=== PATIENT | female | born 1975 | race Caucasian/White ===

== ENCOUNTER 2020-02-19 08:25 | Observation (INO) | payer OTHER, SELFPAY ==
[2020-02-19] VITALS (14 sets, daily range): BP systolic 115–159; BP diastolic 54–86; PULSE 68–113; RESP 15–21; TEMP 36.2–37.1; O2SAT 96–100; BMI 35.0; BMI 36.2; BMI 36.3
--- NOTE | 2020-02-19 08:29 | RAD_ITS ---
STUDY: X-RAY CHEST REASON FOR EXAM: Female, 44 years old. NEURO DEFICIT, ACUTE, STROKE SUSPECTED. NO CHEST COMPLAINTS TECHNIQUE: Single AP portable view of the chest. COMPARISON: None. FINDINGS: EKG electrodes are seen. The lungs are clear and expanded. There is no demonstrated pleural abnormality. Normal size heart. Normal mediastinum and toyin. Normal visualized pulmonary arteries. Normal visualized aortic arch and descending thoracic aorta. Normal visualized thoracic spine. Normal visualized ribs, clavicles, and shoulders. There is no demonstrated abnormality of the visualized soft tissue structures of the upper abdomen. RAD/Chest 1 View IMPRESSION: Normal x-ray examination of the chest. Electronically Signed: Brenden Ferguson, at 9:30 EST , Service support ,
--- NOTE | 2020-02-19 08:29 | EKG12_ITS ---
Test Reason : STROKE Blood Pressure : / mmHG Vent. Rate : 074 BPM Atrial Rate : 074 BPM P-R Int : 150 ms QRS Dur : 074 ms QT Int : 384 ms P-R-T Axes : 042 032 020 degrees QTc Int : 426 ms Normal sinus rhythm Normal ECG Confirmed by JESÚS LEWIS, KENRICK ([id number]), online content editor KWASI PALOMINO ([id number]) on 02/21/2020 8:14:54 AM Referred By: STEFAN Confirmed By:KENRICK ESPINOSA MD
--- NOTE | 2020-02-19 08:29 | CT_ITS ---
STUDY: CT HEAD STROKE PROTOCOL W/O CONTRAST INJECTION REASON FOR EXAM: Female, 44 years old. STROKE RADIATION DOSAGE (If Supplied By Facility): CTDIvol = ( ) mGy, DLP = ( ) mGycm TECHNIQUE: Transaxial CT imaging of the brain was performed without administration of intravenous contrast material. Individualized dose optimization techniques were used for this CT. COMPARISON: No relevant priors. FINDINGS: Normal soft tissue structures. Normal calvarium. Normal size ventricles and extra-axial spaces for the patient''s age. Normal white matter tracts of the cerebral hemispheres. Focal punctate calcification in the right basal ganglia. Normal brainstem. Normal cerebellum. There is no intracranial hemorrhage. There are no findings of an acute ischemic infarction. Normal visualized paranasal sinuses. CT/STROKE Brain/Head without Cont IMPRESSION: Normal unenhanced CT scan of the brain. N.B. : The above information has been verbally conveyed by Brenden Ferguson to Isaac Molina MD, on 02/19/2020 08:45:17 (ET). Electronically Signed: Brenden Ferguson, at 8:46 EST , Service support ,
--- NOTE | 2020-02-19 08:30 | CT_ITS ---
STUDY: CTA HEAD AND NECK WITH CONTRAST REASON FOR EXAM: Female, 44 years old. POSS STROKE. RIGHT FACIAL DROOP RADIATION DOSAGE (If Supplied By Facility): CTDIvol = ( 26.53 ) mGy, DLP = ( 703.39 ) mGycm TECHNIQUE: CT angiography was performed with a multi-detector CT scanner. Data acquisition was obtained from the skull base through the vertex following intravenous administration of [id number] 100ML. MIP images were reconstructed from the axial data set. Post-processing of the angiographic images was performed, with multiplanar reformation and 3D reconstruction. Individualized dose optimization techniques were used for this CT. COMPARISON: No relevant priors. FINDINGS: Normal bilateral petrous carotid arteries. Normal right cavernous carotid artery with a normal supraclinoid bifurcation. Normal left cavernous carotid artery with a normal supraclinoid bifurcation. Normal right A1 segments of the anterior cerebral artery. Normal left A1 segments of the anterior cerebral artery. Normal intact anterior communicating artery (ACOM). Normal bilateral A2 segments of the anterior cerebral arteries. Normal right M1 and M2 segments of the middle cerebral arteries, with a normal M1 bifurcation. Normal left M1 and M2 segments of the middle cerebral arteries, with a normal M1 bifurcation. Normal right posterior communicating artery (PCOM). Normal left posterior communicating artery (PCOM). Normal bilateral vertebral arteries. Normal basilar artery with a normal basilar bifurcation. The visualized bilateral superior cerebellar (SCA) arteries are normal. Normal bilateral P1, P2 and visualized P3 segments of the posterior cerebral arteries. There is no demonstrated aneurysm of the [place]. There is no demonstrated abnormality of the visualized brain. AORTIC ARCH: Normal visualized aortic arch. Normal origins of the brachiocephalic, left common carotid, and left subclavian arteries. RIGHT CAROTID ARTERIES: Normal right common carotid artery (CCA). Normal right common carotid bulb. Normal origin of the right internal carotid (ICA) artery without a hemodynamically significant stenosis. Normal visualized cervical portion of the right internal carotid artery. Normal origin of the right external carotid artery (ECA). LEFT CAROTID ARTERIES: Normal left common carotid artery (CCA). Normal left common carotid bulb. Normal origin of the left internal carotid (ICA) artery without a hemodynamically significant stenosis. Normal visualized cervical portion of the left internal carotid artery. Normal origin of the left external carotid artery (ECA). VERTEBRAL ARTERIES: Normal bilateral vertebral arteries. CT/STROKE CTA Head AND Neck W/Con IMPRESSION: Normal CTA Head and neck with contrast. N.B. : The above information has been verbally conveyed by Brenden Ferguson to CHIQUIS Gamez on 02/19/2020 08:49:51 (ET). Electronically Signed: Brenden Ferguson, at 8:50 EST , Service support ,
--- NOTE | 2020-02-19 08:32 | ED.VIS.STROK ---
History of Present Illness Chief Complaint: Neuro S/Sx Informant: Patient Onset: Today Narrative: 44-year-old female with no significant past medical history presents with concern for right-sided facial droop. States she woke up this morning after last known well being 10 PM yesterday (10 hours) with a right-sided facial droop. States that she also has tingling in her right hand. States that she does get tingling intermittently in her right hand after a long day of work but it does feel somewhat worse this morning. Denies any headache, vision change, nausea, vomiting, neck pain, fever, chills, head injury. Denies any chest pain, shortness of breath, cough. States that her mother had a stroke at the same age that she is now. Patient is not a current smoker. Past Medical History - Allergies and Home Meds Allergies/Adverse Reactions: Allergies acetaminophen Allergy (Verified 08/22/14 10:05) Unknown FROM PERCOCET oxycodone Allergy (Verified 08/22/14 10:04) Unknown Primary Care Physician: Adam Chua NP, INFANTRY OPERATIONS SPECIALIST-C [NON-STAFF] - Prior records reviewed: Yes Past Medical History: None Surgical History: hysterectomy Lives: With Family Smoking Status: Never smoker Alcohol: None Drugs: None Review of Systems General: Denies: Chills, Fever, Sweats Eyes: Denies: Visual changes - bilaterally, Diplopia ENT: Denies: Rhinorrhea, Sore throat Cardiovascular: Denies: Chest pain, Palpitations Respiratory: Denies: Dyspnea, Cough, Dyspnea on exertion Gastrointestinal: Denies: Abdominal pain, Nausea, Vomiting, Diarrhea, Melena, Hematochezia Genitourinary: Denies: Dysuria, Hematuria, Frequency Musculoskeletal: Denies: Back pain, Extremity Pain Skin: Denies: Rash, Wounds Neurological: Reports: Parasthesia, - - right facial droop. Denies: Headache, Weakness, Numbness STROKE Vital Signs/Narrative: Vital Signs Pulse Resp BP Pulse Ox 02/19/20 08:26 86 18 159/85 H 99 Inital Vital Signs reviewed: Yes General: Well nourished, Well developed Head: Normocephalic, Atraumatic Eyes: Perrl, EOMI ENT: Moist mucous membranes, No rhinorrhea Neck: Supple, Nontender Cardiovascular: Regular rate, Regular rhythm, No murmurs Respiratory: No distress, CTA bilaterally, Chest nontender Abdomen: Soft, Nontender, Nondistended, Normal bowel sounds Back: Nontender, Normal Inspection Extremities: Nontender, No edema Skin: Normal color, No rash Neurological: Alert, Oriented x3, Cranial nerves II-XII grossly intact, Normal Strength, Normal Sensation, Right side facial droop, - - NIH 1 Psychological: Normal affect Diagnostic/Tx/Re-eval Clinical Impression(s) from Imaging Studies Brain CT 02/19/20 08:29 IMPRESSION: Normal unenhanced CT scan of the brain. N.B. : The above information has been verbally conveyed by Brenden Ferguson to Isaac Gamez MD, on 02/19/2020 08:45:17 (ET). Electronically Signed: Brenden Ferguson, at 8:46 EST , Service support , ADDENDUM: 02/19/20 0853 IMPRESSION: Normal unenhanced CT scan of the brain. N.B. : The above information has been verbally conveyed by Brenden Ferguson to Isaac Gamez MD, on 02/19/2020 08:45:17 (ET). Electronically Signed: Brenden Ferguson, at 8:46 EST , Service support , Chest X-Ray 02/19/20 08:29 IMPRESSION: Normal x-ray examination of the chest. Electronically Signed: Brenden Ferguson, at 9:30 EST , Service support , Head/Neck CTA 02/19/20 08:30 IMPRESSION: Normal CTA Head and neck with contrast. N.B. : The above information has been verbally conveyed by Brenden Ferguson to ISAAC Gamez on 02/19/2020 08:49:51 (ET). Electronically Signed: Brenden Ferguson, at 8:50 EST , Service support , ADDENDUM: 02/19/20 0857 IMPRESSION: Normal CTA Head and neck with contrast. N.B. : The above information has been verbally conveyed by Brenden Ferguson to ISAAC Gamez on 02/19/2020 08:49:51 (ET). Electronically Signed: Brenden Ferguson, at 8:50 EST , Service support , Laboratory Data 02/19/20 02/19/20 02/19/20 08:43 08:45 08:45 WBC 5.8 RBC 3.71 L Hgb 11.4 L Hct 34.3 L MCV 92.5 MCH 30.7 MCHC 33.2 RDW Std Deviation 41.0 RDW Coeff of [place] 12.1 Plt Count 211 MPV 11.4 Immature Gran % (Auto) 0.300 Neut % (Auto) 59.7 Lymph % (Auto) 32.0 [place] % (Auto) 6.6 Eos % (Auto) 1.2 Baso % (Auto) 0.2 Absolute Neuts (auto) 3.5 Absolute Lymphs (auto) 1.85 Nucleated RBC % 0 PT 12.3 INR 1.0 APTT 29.2 Sodium Potassium Chloride Carbon Dioxide Anion Gap BUN Creatinine Estim Creat Clear Calc Est GFR (MDRD) Af Amer Est GFR (MDRD) Non-Af BUN/Creatinine Ratio Glucose Calcium Troponin I POC Glucose 89 02/19/20 08:45 WBC RBC Hgb Hct MCV MCH MCHC RDW Std Deviation RDW Coeff of [place] Plt Count MPV Immature Gran % (Auto) Neut % (Auto) Lymph % (Auto) [place] % (Auto) Eos % (Auto) Baso % (Auto) Absolute Neuts (auto) Absolute Lymphs (auto) Nucleated RBC % PT INR APTT Sodium 136 Potassium 4.3 Chloride 104 Carbon Dioxide 27.0 Anion Gap 5 BUN 14 Creatinine 0.70 Estim Creat Clear Calc 86.72 Est GFR (MDRD) Af Amer 116 Est GFR (MDRD) Non-Af 96 BUN/Creatinine Ratio 20.1 H Glucose 96 Calcium 7.7 L Troponin I < 0.015 POC Glucose Chest X-Ray - ED: 1 View, Read by ED Physician, Read by Radiologist, Normal - Rhythm Strip Rhythm Strip: Sinus Rhythm Rate: 74 Ectopy: None - EKG Initial EKG Interpretation: Sinus Rhythm - Sinus rhythm at 74 bpm. PA interval of 150 ms. QTC of 426 ms. No evidence of acute ischemia. T wave inversion in lead III. - Medical Decision Making Stroke Team Activated: Yes Reviewed Inclusion/Exclusion criteria: Yes Was Patient considered for Endovascular Intervention?: No IV Alteplase (t-PA) Administered: No No contraindications for IV Alteplase (t-PA) administration.: No Alteplase (t-PA) risks, benefits, alternative discussed: No Patient appears well and nontoxic. Initial NIH of 1. Patient has an isolated right-sided facial droop with some mild sensory changes. Patient is able to furrowed brow bilaterally which makes me believe this is likely an upper motor neuron lesion. Neurology agrees following their evaluation. CT and CTA both negative. MRI of the head neck was suggested by neurology following an admission for further stroke evaluation. Patient was given aspirin. EKG nonischemic. Chest x-ray interpreted by myself shows no evidence of significant cardiomegaly or infiltrate. Radiology concurs. Spoke with hospitalist who is agreeable with admission. Patient admitted in stable condition. Impression: 1. Right sided facial droop 2. Right upper extremity paresthesia ED Disposition - Plan for ED Patient: Disposition: Acute Care Hospital [facility] Referrals: Adam Chua NP, INFANTRY OPERATIONS SPECIALIST-C [NON-STAFF] -
[2020-02-19 08:50] LABS: Bedside Glucose 89 mg/dL (70-110)
[2020-02-19 08:50] LABS: Absolute Lymphocyte Count 1.85 X10^3/uL (0.83-4.51); Absolute Neutrophil Count 3.5 X10^3/uL (2.0-7.7); Basophil# 0.01 X10^3/uL; Basophil% 0.2 % (0-1); Eosinophil# 0.07 X10^3/uL; Eosinophils% 1.2 % (0-5); Hematocrit 34.3 % (37-47); Hemoglobin 11.4 g/dL (12.0-15.0); Lymphocyte # 1.85 X10^3/ul (4.0); Mean Corp Hgb Conc 33.2 g/dL (32-36); Mean Corpuscular Hgb 30.7 pg (27.0-32.0); Mean Corpuscular Volume 92.5 fL (81-99); Mean Platelet Vol. 11.4 fl (6.2-12.0); Monocyte# 0.38 X10^3/uL; Monocyte% 6.6 % (0-10); NRBC Flagged by Analyzer 0 % (0-5); Neutrophil # 3.45 X10^3/uL (2.7-7.7); Neutrophil % 59.7 % (47-70); Platelet Count 211 K/mm3 (150-450); RBC Distribution Width CV 12.1 % (11.6-14.6); Red Blood Count 3.71 M/mm3 (4.2-5.4); White Blood Count 5.8 K/mm3 (4.4-11.0)
[2020-02-19 09:06] LABS: Prothrombin Time (Protime)PT. 12.3 SECONDS (11.7-14.9)
[2020-02-19 09:07] LABS: Anion Gap 5 (5-15); BUN 14 mg/dL (7-18); BUN/Creat Ratio 20.1 RATIO (10-20); Calcium,Total 7.7 mg/dL (8.5-10.1); Chloride 104 mmol/L (98-107); EST Glomerular Filtration Rate 96 mL/min (>60); Est Glom Filt Rate - Afr Amer 116 mL/min (>60); Estimated Creatinine Clearance 86.72 ml/min; Glucose 96 mg/dL (74-106); Partial Thromboplast Time 29.2 Seconds (24.1-36.2); Potassium 4.3 mmol/L (3.5-5.1); Sodium Level 136 mmol/L (136-145)
[2020-02-19] MEDS: Aspirin 81 MG TAB.CHEW 324 MG PO (09:07)
--- NOTE | 2020-02-19 10:00 | PCM.HP.STD ---
Problem List (1) Facial droop Status: Acute (2) BMI 36.0-36.9,adult Status: Chronic History of Present Illness Date of Admission: 02/19/20 Chief Complaint: Right facial droop The patient is a 44 year old F in relatively good health who presented with right facial droop. Patient noticed symptoms when she woke up this a.m. She also did develop tingling sensation around the face as well as right upper extremity. Presented to the emergency as a result. Patient underwent CT as well as CTA of the head and neck both of which were unremarkable. Decision made to admit patient to monitored bed for further management Past Medical History Past Medical History (Chronic Problems): Chronic Problems BMI 36.0-36.9,adult (Chronic) Allergies acetaminophen Allergy (Verified 08/22/14 10:05) Unknown FROM PERCOCET oxycodone Allergy (Verified 08/22/14 10:04) Unknown Home Medications: Ambulatory Orders Medication Instructions Recorded Cholecalciferol (Vitamin D3) 5,000 unit PO DAILY 11/22/14 [Vitamin D3] Sertraline HCl [Zoloft] 1 tab PO QHS 02/19/20 Vitamin B Complex 1 ea PO DAILY 02/19/20 Surgical History: hysterectomy Lives: With Family Smoking Status: Never smoker Alcohol: None Drugs: None - *Family History Maternal History Items: Stroke Paternal History Items: Stroke Review of Systems Constitutional: Denies: Anorexia, Chills, Fever, Night Sweats, Weight Change HEENT: Denies: Head Aches, Sinus Congestion, Sinus Drainage Cardiovascular: Denies: Chest Pain, Orthopnea, Palpitations, Paroxysmal Noc. Dyspnea Respiratory: Denies: Cough, Shortness of breath at rest, Shortness of breath upon exertion, Sputum production Gastrointestinal: Denies: Abdominal Pain, Hematemesis, Hematochezia, Nausea, Melena, Vomiting Genitourinary: Denies: Dysuria, Frequency, Hematuria, Urgency Musculoskeletal: Denies: Joint Pain, Joint Tenderness Skin: Denies: Rash Neurological: Reports: Numbness. Denies: Focal weakness, Tingling Psychiatric: Denies: Homicidal Ideations, Suicidal Ideations Hematologic/ Lymphatic: Denies: Easy Bruising, Easy Bleeding VTE Information - Inpt Only VTE Present on Admission: No VTE Mechan Device Prophylaxis: None VTE Pharm Prophylaxis ordered?: Yes Patient Problems: Active and Suspected Problems Facial droop (Acute) Objective: GENERAL: cooperative HEENT: Atraumatic; EYES; Anicteric, Normal Conjunctiva NECK; supple, normal thyroid, RESPIRATORY: Diminished to auscultation CARDIOVASCULAR: Regular S1 S2, GI: soft, normoactive bowel sounds, : No Renal angle tenderness; EXTREMITIES: No edema, no clubbing, MUSCULOSKELETAL: no muscle waisting NEURO: Right facial droop SKIN: No Rash PSYCH; Flat affect - Physical Exam Vitals/I&O's: Vital Signs Temp Pulse Resp BP Pulse Ox 97.2 F L 76 20 H 123/75 H 97 02/19/20 08:25 02/19/20 09:30 02/19/20 09:30 02/19/20 09:30 02/19/20 09:30 Oxygen Delivery Method Room Air Weight: 92.7 kg Body Mass Index (BMI) 35.0 Finger Stick Blood Glucose 89 Laboratory Results 02/19/20 08:43: POC Glucose 89 02/19/20 08:45: WBC 5.8, RBC 3.71 L, Hgb 11.4 L, Hct 34.3 L, MCV 92.5, MCH 30.7, MCHC 33.2, RDW Std Deviation 41.0, RDW Coeff of [place] 12.1, Plt Count 211, MPV 11.4, Immature Gran % (Auto) 0.300, Neut % (Auto) 59.7, Lymph % (Auto) 32.0, [place] % (Auto) 6.6, Eos % (Auto) 1.2, Baso % (Auto) 0.2, Absolute Neuts (auto) 3.5, Absolute Lymphs (auto) 1.85, Nucleated RBC % 0 02/19/20 08:45: PT 12.3, INR 1.0, APTT 29.2 02/19/20 08:45: Sodium 136, Potassium 4.3, Chloride 104, Carbon Dioxide 27.0, Anion Gap 5, BUN 14, Creatinine 0.70, Estim Creat Clear Calc 86.72, Est GFR (MDRD) Af Amer 116, Est GFR (MDRD) Non-Af 96, BUN/Creatinine Ratio 20.1 H, Glucose 96, Calcium 7.7 L, Troponin I < 0.015 Assessment/Plan All Active Problems Facial droop (Acute) Patient is a 44-year-old lady admitted with right facial droop 1. Right facial droop ?Acute CVA versus Rolle's palsy. Admitted to monitored bed. Initial head CT as well as CTA unremarkable. Subsequently requested for MRI of the brain without contrast as well as routine MRI of the cervical spine to rule out cervical radiculopathy 2. Morbid obesity - With a BMI of 36 patient was counseled on weight reduction 3. Status post hysterectomy ?Patient was placed on sertraline for mood stabilization 4. DVT prophylaxis ?Lovenox OBSV E&M: 11831 Initial observation care L3
--- NOTE | 2020-02-19 10:28 | ECHOD_ITS ---
Reason For Study: TIA/CVA Procedure This was a 2D Doppler, Color Flow transthoracic echocardiogram. Contrast injection was performed. Exam performed portable in patient room. Left Ventricle Normal LV size. Left ventricular systolic function is normal. The estimated ejection fraction is 65 %. Normal diastology for age. No regional wall motion abnormalities noted. Right Ventricle Normal RV size. Normal systolic function. Atria Normal left atrium. Normal right atrium. Bubble contrast study negative for right to left interatrial shunt. Mitral Valve Normal mitral valve. Tricuspid Valve Normal tricuspid valve. Mild tricuspid valve insufficiency. Pulmonary artery systolic pressure is 21 mmHg. Aortic Valve Normal aortic valve. Trisinus/trileaflet aortic valve. Pulmonic Valve Normal pulmonic valve. Great Vessels Normal aortic root. The pulmonary artery is normal size. Normal inferior vena cava. Pericardium/Pleural No pericardial effusion. Medication Performed a rapid injection of agitated mix of 9 cc saline and 1cc air to assess for atrial septal defect. MMode/2D Measurements & Calculations LVIDd: 3.8 cm IVSd: 1.3 cm Ao root diam: 2.6 cm LVIDs: 2.3 cm LVPWd: 1.1 cm LA dimension: 3.8 cm RVDd: 3.1 cm FS: 39.2 % LAV(MOD-bp): 42.5 ml LA A4 area: 14.7 cm2 RA A4 area: 11.7 cm2 LAV(MOD-sp2): 48.5 ml LAV(MOD-sp4): 37.0 ml Time Measurements MV dec time: 0.20 sec Doppler Measurements & Calculations MV E max milind: 96.3 cm/sec Lat Peak E' Milind: 12.2 cm/sec Med Peak E' Milind: 10.5 cm/sec MV A max milind: 80.0 cm/sec E/E' lat: 7.9 E/E' med: 9.2 MV E/A: 1.2 MV V2 max: 118.5 cm/sec MV P1/2t max milind: 121.3 cm/sec Ao V2 max: 130.0 cm/sec MV max P.6 mmHg MV P1/2t: 64.1 msec Ao max P.8 mmHg MV V2 mean: 61.2 cm/sec MV mean P.8 mmHg MV dec slope: 554.7 cm/sec2 MV V2 VTI: 31.0 cm MVA(P1/2t): 3.4 cm2 LV V1 max: 74.4 cm/sec PA V2 max: 89.6 cm/sec TR max milind: 214.2 cm/sec LV V1 max P.2 mmHg TR max P.3 mmHg Interpretation Summary Normal LV size. Left ventricular systolic function is normal. The estimated ejection fraction is 65 %. Normal diastology for age. Pulmonary artery systolic pressure is 21 mmHg. Bubble contrast study negative for right to left interatrial shunt. Ordering Physician: Benjamin Joseph Referring Physician: Crystal Garcia Performed By: Hesham Ennis RCS
--- NOTE | 2020-02-19 10:28 | MRI_ITS ---
STUDY: MRI CERVICAL SPINE WITHOUT CONTRAST REASON FOR EXAM: Female, 44 years old. CVA, rt facial droop, rt arm weakness, no neck pain TECHNIQUE: Standardized fat and water weighted pulse sequences were obtained in the sagittal and axial planes. COMPARISON: CTA neck 02/19/2020. FINDINGS: Normal foramen magnum and brainstem-cervical cord junction. Normal craniovertebral junction. Normal anterior atlantoaxial articulation. Normal odontoid process. Straightening of the C-spine curve. Normal vertebral bodies and posterior osseous elements. C2-3: Normal endplates. Normal disc height, signal and morphology. Normal central canal and intervertebral neural foramina. C3-4: Normal endplates. Normal disc height, signal and morphology. Normal central canal and intervertebral neural foramina. C4-5: Normal endplates. Normal disc height, signal and morphology. Normal central canal and intervertebral neural foramina. C5-6: Normal endplates. Normal disc height, signal and morphology. Normal central canal and intervertebral neural foramina. C6-7: Normal endplates. Normal disc height, signal and morphology. Normal central canal and intervertebral neural foramina. C7-T1: Normal endplates. Normal disc height, signal and morphology. Normal central canal and intervertebral neural foramina. T1-T2: Normal endplates. Normal disc height, signal and morphology. Normal central canal and intervertebral neural foramina. T2-T3 and T3-T4: (Sagittal only). Normal endplates. Normal disc height, signal and morphology. Normal central canal and intervertebral neural foramina. Normal cervical cord. Normal upper thoracic spinal cord. Normal visualized soft tissue structures. MRI/Spine Cervical (Routine) IMPRESSION: Normal unenhanced MR examination of the cervical spine. Electronically Signed: Aung Hobson MD at 15:10 EST , Service support ,
--- NOTE | 2020-02-19 10:28 | MRI_ITS ---
STUDY: MRI BRAIN WITHOUT CONTRAST REASON FOR EXAM: Female, 44 years old. CVA, rt facial droop, rt arm pain TECHNIQUE: Standardized multiplanar fat and water weighted pulse sequences were obtained. COMPARISON: CT head without contrast 02/19/2020. FINDINGS: No diffusion restriction to suspect acute or subacute ischemic infarct. No focal signal abnormalities throughout the brain parenchyma in all of the pulse sequences. Normal size of the ventricles and extra-axial spaces for the patient''s age. Normal white matter tracts of the supratentorial brain. Normal bilateral basal ganglia. Normal thalami. There is no extra-axial fluid accumulation. Normal flow voids within the major intracranial circulation suggesting patency by spin echo criteria. Normal sella turcica, pituitary gland, infundibular stalk, optic chiasm and hypothalamus. Normal tectal plate and pineal gland. Normal midbrain, gatito and medulla. Normal cerebellum. Normal basal cisterns. Normal bilateral temporal bones. Normal bilateral internal auditory canals. No demonstrated orbital abnormality, within the constraints of a routine brain study. Normal visualized paranasal sinuses. Normal calvarium and skull base. Normal visualized soft tissue structures. Normal visualized upper cervical spine. MRI/Brain without Contrast IMPRESSION: Normal unenhanced MRI of the brain. Electronically Signed: Aung Hobson MD at 15:08 EST , Service support ,
--- NOTE | 2020-02-19 10:42 | PCS.PANDOC ---
PANDEMIC DOCUMENTATION INITIATED: Date: 02/19/2020 Time: 1019
[2020-02-19 12:50] LABS: Probe Check PASS; Specimen Processing Control PASS
[2020-02-19] MEDS: 0.9% Saline Lock 10 ML Syringe IV (15:26)
--- NOTE | 2020-02-19 17:33 | NURSING ---
Cool compress applied to forehead
[2020-02-19] MEDS: Ibuprofen 400 MG Tablet PO (18:48)
[2020-02-19] MEDS: Sertraline 50 MG Tablet PO (20:44)
[2020-02-20 03:00] VITALS: PULSE 68
[2020-02-20 03:30] VITALS: BP 112/54; PULSE 77; RESP 18; TEMP 36.6; O2SAT 97
[2020-02-20 06:14] LABS: Cholesterol 189 mg/dL (200); High Density Lipoprotein 44 mg/dL; Triglycerides 138 mg/dL; Very Low Density Lipoprotein 28 mg/dL (5-40)
[2020-02-20 06:58] VITALS: PULSE 74
[2020-02-20 07:30] VITALS: BP 124/67; PULSE 74; RESP 18; TEMP 36.6; O2SAT 96
[2020-02-20] MEDS: Cyanocobalamin 500 MCG Tablet 1000 MCG PO (07:44)
[2020-02-20] MEDS: Enoxaparin 40 MG/0.4 ML Syringe SC (07:44)
[2020-02-20] MEDS: Aspirin 81 MG TAB.CHEW PO (07:45)
--- NOTE | 2020-02-20 08:29 | PCM.DC ---
- Discharge Diagnoses Current Active Problems: Current Active and Chronic Problems Facial droop (Acute) BMI 36.0-36.9,adult (Chronic) You will use the following diet at home:: No restrictions Discharge Activity: Return to Normal Activity Return to work on:: 02/22/20 Allergies/Adverse Reactions: Allergies acetaminophen Allergy (Verified 08/22/14 10:05) Unknown FROM PERCOCET oxycodone Allergy (Verified 08/22/14 10:04) Unknown Medications to take at Discharge Cholecalciferol (Vitamin D3) [Vitamin D3] 5,000 unit PO DAILY 11/22/14 Sertraline HCl [Zoloft] 1 tab PO QHS 02/19/20 Vitamin B Complex 1 ea PO DAILY 02/19/20 Aspirin [Aspirin, Baby] 81 mg PO DAILY@0800 #90 tab.chew 02/20/20 Atorvastatin Calcium [Lipitor] 40 mg PO QHS #90 tab 02/20/20 The following prescriptions were given: Aspirin [Aspirin, Baby] 81 mg PO DAILY@0800 #90 tab.chew Transmission Status: Pending to [facility] Atorvastatin Calcium [Lipitor] 40 mg PO QHS #90 tab Transmission Status: Pending to [facility] Primary Care Physician: Adam Chua NP, BENEFITS REPRESENTATIVE-C [NON-STAFF] - Please follow up with your Primary Care Physician in: in 1-2 weeks Test Results: Test results from this visit will be discussed in further detail at your follow-up appointment, if applicable. Proposed Discharge Date: 02/20/20
--- NOTE | 2020-02-20 08:30 | DS.PCM_ITS ---
Discharge Date and Diagnosis - Problem List Patient Problems: Active and Suspected Problems Facial droop (Acute) Date of Admission: 02/19/20 Date of Discharge: 02/20/20 - Primary Discharge Diagnosis Acute Problems: Active Problems Facial droop (Acute) - Secondary Discharge Diagnosis Chronic Problems: Chronic Problems BMI 36.0-36.9,adult (Chronic) Hospital Course and Treatment Imaging Results: Clinical Impression(s) from Imaging Studies Brain CT 02/19/20 08:29 IMPRESSION: Normal unenhanced CT scan of the brain. Chest X-Ray 02/19/20 08:29 IMPRESSION: Normal x-ray examination of the chest. Electronically Signed: Brenden Ferguson, at 9:30 EST , Service support , Head/Neck CTA 02/19/20 08:30 IMPRESSION: Normal CTA Head and neck with contrast. Brain MRI 02/19/20 10:28 IMPRESSION: Normal unenhanced MRI of the brain. Electronically Signed: Aung Hobson MD at 15:08 EST , Service support , Cervical Spine MRI 02/19/20 10:28 IMPRESSION: Normal unenhanced MR examination of the cervical spine. Electronically Signed: Aung Hobson MD at 15:10 EST , Service support , Summary of Care Provided: Patient is a 44-year-old lady admitted with right facial droop 1. Right facial droop secondary to TIA ? Admitted to monitored bed. Initial head CT as well as CTA unremarkable. Subsequently requested for MRI of the brain without contrast as well as routine MRI of the cervical spine to rule out cervical radiculopathy -Imaging studies obtained came back unremarkable. Patient 2D echo within normal limits with no regional wall motion abnormalities. Patient symptoms had resolved at the time of discharge. Discharged home on atorvastatin as well as aspirin. 2. Morbid obesity - With a BMI of 36 patient was counseled on weight reduction 3. Status post hysterectomy ?Patient was placed on sertraline for mood stabilization 4. DVT prophylaxis ?Lovenox Patient Problems: Active and Suspected Problems Facial droop (Acute) Objective: GENERAL: cooperative HEENT: Atraumatic; EYES; Anicteric, Normal Conjunctiva NECK; supple, normal thyroid, RESPIRATORY: Diminished to auscultation CARDIOVASCULAR: Regular S1 S2, GI: soft, normoactive bowel sounds, : No Renal angle tenderness; EXTREMITIES: No edema, no clubbing, MUSCULOSKELETAL: no muscle waisting NEURO: Awake; no lateralizing signs. SKIN: No Rash PSYCH; Flat affect - Physical Exam Vitals/I&O's: Vital Signs Temp Pulse Resp BP Pulse Ox 97.8 F 74 18 124/67 H 96 02/20/20 07:30 02/20/20 07:30 02/20/20 07:30 02/20/20 07:30 02/20/20 07:30 Oxygen Delivery Method Room Air Weight: 89.9 kg Body Mass Index (BMI) 36.2 Finger Stick Blood Glucose 89 Intake and Output for Last 24 Hours 02/18/20 02/19/20 02/20/20 23:59 23:59 23:59 Intake Total 490 / 730 1240 / 1240 Balance 490 / 730 1240 / 1240 Laboratory Results 02/19/20 08:43: POC Glucose 89 02/19/20 08:45: WBC 5.8, RBC 3.71 L, Hgb 11.4 L, Hct 34.3 L, MCV 92.5, MCH 30.7, MCHC 33.2, RDW Std Deviation 41.0, RDW Coeff of [place] 12.1, Plt Count 211, MPV 11.4, Immature Gran % (Auto) 0.300, Neut % (Auto) 59.7, Lymph % (Auto) 32.0, [place] % (Auto) 6.6, Eos % (Auto) 1.2, Baso % (Auto) 0.2, Absolute Neuts (auto) 3.5, Absolute Lymphs (auto) 1.85, Nucleated RBC % 0 02/19/20 08:45: PT 12.3, INR 1.0, APTT 29.2 02/19/20 08:45: Sodium 136, Potassium 4.3, Chloride 104, Carbon Dioxide 27.0, Anion Gap 5, BUN 14, Creatinine 0.70, Estim Creat Clear Calc 86.72, Est GFR (MDRD) Af Amer 116, Est GFR (MDRD) Non-Af 96, BUN/Creatinine Ratio 20.1 H, Glucose 96, Calcium 7.7 L, Troponin I < 0.015 02/19/20 10:45: Troponin I < 0.015 02/19/20 10:57: COVID-19 (KHRIS) Negative 02/20/20 05:25: Triglycerides 138, Cholesterol 189, LDL Cholesterol 117, VLDL Cholesterol 28, HDL Cholesterol 44 Current Medications Aspirin (Aspirin 81 Mg Tab.Chew) 81 mg PO DAILY@0800 [facility] Last Admin: 02/20/20 07:45 Dose: 81 mg Documented by: Atorvastatin Calcium (Atorvastatin Calcium 80 Mg Tablet) 80 mg PO QHS [facility] Last Admin: 02/19/20 20:46 Dose: Not Given Documented by: Cyanocobalamin (Cyanocobalamin 500 Mcg Tablet) 1,000 mcg PO DAILY@0800 [facility] Last Admin: 02/20/20 07:44 Dose: 1,000 mcg Documented by: Enoxaparin Sodium (Enoxaparin 40 Mg/0.4 Ml Syringe) 40 mg SC DAILY [facility] Last Admin: 02/20/20 07:44 Dose: 40 mg Documented by: Hydralazine HCl (Hydralazine 20 Mg/Ml Vial) 5 mg IV Q30M PRN PRN Reason: to maintain BP goals Potassium Chloride/Sodium Chloride () 1,000 mls @ 100 mls/hr IV .Q10H [facility] Last Admin: 02/20/20 01:31 Dose: 100 mls/hr Documented by: Ibuprofen (Ibuprofen 400 Mg Tablet) 400 mg PO Q6H PRN PRN PRN Reason: Pain 1-10 or Fever Last Admin: 02/19/20 18:48 Dose: 400 mg Documented by: Labetalol HCl (Labetalol (Prefilled) 20 Mg/4 Ml) 10 - 20 mg IV Q10M PRN PRN PRN Reason: to Maintain BP Goals Sertraline HCl (Sertraline 50 Mg Tablet) 50 mg PO QHS [facility] Last Admin: 02/19/20 20:44 Dose: 50 mg Documented by: Sodium Chloride (0.9% Saline Lock 10 Ml Syringe) 10 - 40 ml IV UD PRN PRN Reason: SALINE FLUSH Last Admin: 02/19/20 15:26 Dose: 10 ml Documented by: Discharge Diet: No Restrictions Discharge Activity: Return to Normal Activity Home Medications: Medications to take at Discharge Cholecalciferol (Vitamin D3) [Vitamin D3] 5,000 unit PO DAILY 11/22/14 Sertraline HCl [Zoloft] 1 tab PO QHS 02/19/20 Vitamin B Complex 1 ea PO DAILY 02/19/20 Aspirin [Aspirin, Baby] 81 mg PO DAILY@0800 #90 tab.chew 02/20/20 Atorvastatin Calcium [Lipitor] 40 mg PO QHS #90 tab 02/20/20 Following Prescriptions Were Given to Patient: Aspirin [Aspirin, Baby] 81 mg PO DAILY@0800 #90 tab.chew Transmission Status: Pending to [facility] Atorvastatin Calcium [Lipitor] 40 mg PO QHS #90 tab Transmission Status: Pending to [facility] Primary Care Physician: Adam Chua LABORATORY ANIMAL CARETAKER, LABORATORY ANIMAL CARETAKER-C [NON-STAFF] - Please follow up with your Primary Care Physician in: in 1-2 weeks Disposition: Home Minutes spent on discharge:: 35 Patient Condition:: Stable Medical Necessity - Tobacco Use Smoking Status: Never smoker Meaningful Use Info Meaningful Use Diagnoses (Choose all that apply): None applicable OBSV E&M: 92935 Observation care discharge
--- NOTE | 2020-02-20 09:18 | CASEMGMT ---
SW did not complete a PHQ 9 as per physician patient did not have a Stroke or TIA. Shani NELSON MSW
--- NOTE | 2020-02-20 10:49 | PCM.WORK.EX ---
Work/School Excuse Please excuse this person from:: Work From: 02/19/20 through: 02/21/20
--- NOTE | 2020-02-20 11:56 | PHA.DC.MR ---
Pharmacy Service has performed discharge medication reconciliation for this patient. The patient's discharge medication list was reviewed for discrepancies and discrepancies were resolved. Home Medications Cholecalciferol (Vitamin D3) [Vitamin D3] 5,000 unit PO DAILY 11/22/14 Sertraline HCl [Zoloft] 1 tab PO QHS 02/19/20 Vitamin B Complex 1 ea PO DAILY 02/19/20 Aspirin [Aspirin, Baby] 81 mg PO DAILY@0800 #90 tab.chew 02/20/20 Atorvastatin Calcium [Lipitor] 40 mg PO QHS #90 tab 02/20/20
== END 2020-02-20 10:46 | disposition home or self-care (01) ==
LOC: ED 09:54 → PCU 10:01
PROVIDERS: Admitting Provider Internal Medicine; Emergency Provider Emergency Medicine; PCP Nurse Practitioner Family; Visit Provider Internal Medicine
DX: G45.9 Transient cerebral ischemic attack, unspecified (principal); R29.810 Facial weakness; E66.01 Morbid (severe) obesity due to excess calories; Z68.36 Body mass index [BMI] 36.0-36.9, adult; Z79.899 Other long term (current) drug therapy
CPT/HCPCS: 36415; 70450; 70496; 70498; 70551; 71045; 72141; 80048; 80061; 82962; 84484; 85025; 85610; 85730; 87635; 92610; 93005; 93306; 94762; 96360; 96361; 96372; 99218; 99284; Q9957; Q9967; A4216; G0378; U0002

== ENCOUNTER → 2020-03-21 20:08 | Outpatient (CLI) | payer OTHER, SELFPAY ==
[2020-02-19 10:42] VITALS: BMI 36.2
== END ==
LOC: SL 20:08
PROVIDERS: PCP Nurse Practitioner Family; Visit Provider Nurse Practitioner Family
DX: Z13.89 Encounter for screening for other disorder (principal)
CPT/HCPCS: 95810

== ENCOUNTER 2020-05-16 11:48 | Emergency (ER) | payer OTHER, SELFPAY ==
[2020-02-19 10:42] VITALS: BMI 36.2
--- NOTE | 2020-05-16 11:50 | EKG12_ITS ---
Test Reason : NEURO S/SX Blood Pressure : / mmHG Vent. Rate : 092 BPM Atrial Rate : 092 BPM P-R Int : 148 ms QRS Dur : 064 ms QT Int : 356 ms P-R-T Axes : 041 037 031 degrees QTc Int : 440 ms Normal sinus rhythm Normal ECG Confirmed by CRISTINA LEWIS, ARJUN ([id number]), index editor SAI OLIVO ([id number]) on 05/20/2020 2:14:00 PM Referred By: CHEN/JALYN Confirmed By:ARJUN EVANS MD
[2020-05-16 11:53] VITALS: BP 123/97; PULSE 83; RESP 16; TEMP 536; TEMP 996.8; O2SAT 99; BMI 32.3
[2020-05-16 12:01] LABS: Bedside Glucose 106 mg/dL (70-110)
[2020-05-16 12:16] VITALS: BP 123/97; PULSE 83; RESP 16; TEMP 36; O2SAT 99; BMI 37.1
[2020-05-16] MEDS: Ketorolac 30 MG/ML Syringe IV (12:20)
[2020-05-16] MEDS: DiphenhydrAMINE 50 MG/ML Syringe 25 MG IV (12:20)
[2020-05-16] MEDS: 0.9% Normal Saline 1,000 ML 1000 ML IV (12:21)
[2020-05-16] MEDS: Metoclopramide 10 MG/2 ML Vial IV (12:21)
[2020-05-16 12:48] VITALS: BP 108/57; PULSE 78; RESP 20; O2SAT 94
[2020-05-16 13:16] VITALS: BP 93/58; PULSE 78; RESP 18; O2SAT 96
--- NOTE | 2020-05-16 13:24 | ED.VISSUMM ---
- ER Visit Summary Date of Service: 05/16/20 Chief Complaint: [Headache] History of Present Illness: The patient is a 44 F [presents to the emergency department complaint of a headache as well as right-sided facial droop and paresthesias. Patient states that this is the seventh episode since February that she has had like this. Patient has been admitted and has been worked up for stroke and has had CTAs of the head and neck as well as MRIs of the head and neck which have been unremarkable. Patient has seen a neurologist who is looking at the possibility that she may be having either complex migraines versus seizures potentially in her sleep. She has an EEG ordered for the of this month. Patient states that every episode is been the same and that she wakes up with symptoms. Patient states that she had a pronounced facial droop earlier this morning that seems to come and go and some intermittent numbness and tingling to the face that is diffuse. She states that she has a hard time concentrating at times. She does describe a headache kind of behind her left thigh. She is had nausea but no vomiting. Patient does have history of remote migraines but they did not used to present like this.] Patient states that she is actually had decreased stress rather than more recently as she left a stressful job therefore she has not had any significant increase in stressors. Physical Examination: [HEENT-PERRLA, EOMI. Cranial nerves II through XII grossly intact. TMs clear. Mucous membranes moist. No adenopathy. Cardiovascular-regular rate and rhythm without murmur or ectopy Lungs-clear to auscultation, chest wall stable without crepitus or subcu emphysema Abdomen-normoactive bowel sounds, soft, nontender, no rebound or rigidity, no peritoneal signs. Neuro eglc-zqknil-tqzk and heel fitzpatrick testing within normal limits, negative Romberg, negative , Fundi benign. NIH stroke scale was 0. Extremities-intact ?4, normal range of motion, normal pulses, atraumatic] Test Results: [None indicated] Emergency Department Course and Treatment: [IV line established on arrival. Patient was given Reglan, Benadryl, and Toradol and her symptoms did improve. Patient case was discussed with her neurologist Dr. Tra Culp. At this point I do not feel patient needs any further imaging. She is to continue with her follow-up appointments and get her EEG on the . At this point more likely patient is having complex migraines.] Treatment Plan: [Follow-up with neurology as indicated.] Disposition: [Discharged home in stable condition] Impression: [Complex migraine] This note was generated with Migo.meation software. It may contain incorrect words, spelling, and punctuation that were not noted in review of the chart prior to signing ED Disposition - Plan for ED Patient: Referrals: Crystal Garcia INTERNATIONAL SALES MANAGER, INTERNATIONAL SALES MANAGER-C [Primary Care Provider] -
--- NOTE | 2020-05-16 13:27 | DCINST.ED_ITS ---
ED Disposition - Plan for ED Patient: Referrals: Crystal Garcia GARMENT SEWING MACHINE OPERATOR, GARMENT SEWING MACHINE OPERATOR-C [Primary Care Provider] - 3-5 Days Additional Instructions: Follow up with your Neurologist as indicated
--- NOTE | 2020-05-16 13:27 | ED.DEP ---
ED Disposition - Plan for ED Patient: Referrals: Crystal Garcia BEAM DEPARTMENT SUPERVISOR, BEAM DEPARTMENT SUPERVISOR-C [Primary Care Provider] - 3-5 Days Additional Instructions: Follow up with your Neurologist as indicated
[2020-05-16 13:42] VITALS: BP 100/58; PULSE 96; RESP 14; O2SAT 98
== END 2020-05-16 13:43 | disposition home or self-care (01) ==
PROVIDERS: Emergency Provider Emergency Medicine; PCP Nurse Practitioner Family
DX: G43.109 Migraine with aura, not intractable, without status migrainosus (principal); R29.810 Facial weakness; R20.2 Paresthesia of skin; Z79.82 Long term (current) use of aspirin; Z79.899 Other long term (current) drug therapy
CPT/HCPCS: 82962; 93005; 96361; 96374; 96375; 99284; A4216

== ENCOUNTER → 2020-06-03 08:20 | Outpatient (CLI) | payer OTHER, SELFPAY ==
[2020-02-19 10:42] VITALS: BMI 36.2
[2020-05-16 12:16] VITALS: BMI 37.1
--- NOTE | 2020-06-03 09:53 | TELEMED_ITS ---
[facility] has confirmed receipt of a request for visit. This document confirms receipt of the order initiating the consult. To find the results of the consultation, please view the patient's reports for the scanned Telemed Consult.
== END ==
PROVIDERS: PCP Nurse Practitioner Family; Referring Provider Psychiatry & Neurology Sleep Medicine; Visit Provider Psychiatry & Neurology Sleep Medicine
DX: R56.9 Unspecified convulsions (principal)
CPT/HCPCS: 95819

== ENCOUNTER → 2022-03-27 | Outpatient (CLI) | payer BC, SELFPAY ==
--- NOTE | 2022-03-27 11:50 | BI_ITS ---
MAMMOGRAPHY - BILATERAL SCREENING REASON FOR EXAM: Female, 46 years old. Routine annual screening examination. PERTINENT HISTORY: Non-contributory. TECHNIQUE: Digital bilateral breast yoselin (3D mammographic acquisition) in the CC and MLO projections. 2-D mediolateral oblique (MLO) and craniocaudad (CC) views of both breasts were obtained. CAD: Full Field Digital Mammography with Computer Added Detection was performed. COMPARISON: Comparison is made with prior outside examination of 11/29/2018. FINDINGS: Breast Composition: The breasts are heterogeneously dense, which may obscure small masses. There are no dominant masses or suspicious calcifications. No other significant abnormalities are identified. There has been no significant change since the prior study. BI/SCRN MAMM (CAD)W/YOSELIN BILAT IMPRESSION: Stable bilateral screening mammogram. Yearly follow-up mammogram recommended. (A) ASSESSMENT CATEGORY: BIRADS Category 1: Negative. A letter regarding these results will be sent to the patient by the facility within 30 days. Approximately 10% of breast cancers are not detected by mammography. A normal mammogram should not delay biopsy of a clinically suspicious abnormality. [id number] Electronically Signed: Brenden Ferguson MD at 12:57 EST ,
== END | disposition home or self-care (01) ==
LOC: OPBI 11:48
PROVIDERS: PCP Nurse Practitioner Family; Referring Provider Nurse Practitioner Family; Visit Provider Nurse Practitioner Family
DX: Z12.31 Encounter for screening mammogram for malignant neoplasm of breast (principal)
CPT/HCPCS: 77063; 77067

== ENCOUNTER → 2023-04-02 | Outpatient (CLI) | payer BC, SELFPAY ==
--- NOTE | 2023-04-02 10:08 | BI_ITS ---
MAMMOGRAPHY - BILATERAL SCREENING REASON FOR EXAM: Female, 47 years old. Routine annual screening examination. PERTINENT HISTORY: Non-contributory. TECHNIQUE: Digital bilateral breast yoselin (3D mammographic acquisition) in the CC and MLO projections. 2-D mediolateral oblique (MLO) and craniocaudad (CC) views of both breasts were obtained. CAD: Full Field Digital Mammography with Computer Added Detection was performed. COMPARISON: Comparison is made with prior study dated March 27, 2022. FINDINGS: Breast Composition: The breasts are heterogeneously dense, which may obscure small masses. There are no dominant masses or suspicious calcifications. No other significant abnormalities are identified. There has been no significant change since the prior study. BI/SCRN MAMM (CAD)W/YOSELIN BILAT IMPRESSION: Stable bilateral screening mammogram. Yearly follow-up mammogram recommended. (A) ASSESSMENT CATEGORY: BIRADS Category 1: Negative. A letter regarding these results will be sent to the patient by the facility within 30 days. Approximately 10% of breast cancers are not detected by mammography. A normal mammogram should not delay biopsy of a clinically suspicious abnormality. [id number] Electronically Signed: Brenden Ferguson MD at 10:53 EST ,
--- OUTSIDE RECORDS SUMMARY | 2023-04-02 10:36 | XMS RPT_ITS | CCD ---
Author Name Unknown Address [address] [facility] [address] [place] [address] Organization [facility] Care Team Providers Care Heating Technician Name Role Phone ENRRIQUE LOYD Unavailable Unavailable DE BENÍTEZA DELANEY Unavailable Unavailable JEYSON CRYSTAL DELANEY Unavailable Unavailable De Beníteza Delaney Primary Care Provider SOPHIE CARD Attending Unavailable DE BENÍTEZA DELANEY Primary Care Unavailable De Beníteza Delaney Primary Care Provider SELF, SELF Referring Unavailable MEGAN TOLEDO Attending Unavailable De Beníteza Delaney Primary Care Provider Crystal Benítez CNP Primary Care Provider [phone] SOPHIE CARD Admitting Unavailable SOPHIE CARD Referring Unavailable DE BENÍTEZA DELANEY Primary Care Unavailable Adam Chua Primary Care Provider Adam Chua Primary Care Provider CRYSTAL BENÍTEZ Primary Care Unavailable HEENA COVARRUBIAS Attending Unava ilable CRYSTAL BENÍTEZ Primary Care Unavailable SOPHIE CARD Attending Unavailable DE BENÍTEZA DELANEY Primary Care Unavailable HEENA COVARRUBIAS Attending Unava ilable Adam Chua Primary Care Provider Adam Chua Primary Care Provider Adam Chua CNP Primary Care Provider KAE ALEXANDER Referring Unavailable ADAM CHUA Primary Care Unavailable KAE ALEXANDER Attending Unavailable ADAM CHUA Primary Care Unavailable NOEMI ERICKSON Attending Unavailabl e ADAM CHUA Primary Care Unavailable KAE ALEXANDER Attending Unavailable KAE ALEXANDER Referring Unavailable ADAM CHUA Primary Care Unavailable CRYSTAL BENÍTEZ Attending Unavailable CRYSTAL BENÍTEZ Consulting Unavailable CRYSTAL BENÍTEZ Primary Care Unavailable CRYSTAL BENÍTEZ Admitting Unavailable PROVIDER, UNKNOWN Consulting Unavailable Allergies Allergy Classification Reported Allergen(s) Allergy Type Date of Onset Reaction(s) Facility (20 sources) acetaminophen / oxyCODONE; Translations: [OXYCODONE-ACETAMI NOPHEN] Drug Allergy 10-13-2011 Itching [facility] Repository (7 sources) Acetaminophen; Translations: [ACETAMINOPHEN] Drug Allergy 08-22-2014 Unknown [facility] Work Phone: (12 sources) oxyCODONE; Translations: [OXYCODONE] Drug Allergy 08-22-2014 Unknown [facility] Work Phone: (1 source) Acetaminophen / oxyCODONE Drug Allergy [facility] Repository Medications Current Medications Medication Drug Class(es) Dates Sig (Normalized) Sig (Original) ascorbic acid 500 mg oral tablet (1 source) Vitamin C take 1 tablet by mouth once daily ascorbic acid, vitamin C, (ascorbic acid with lance hips) 500 MG tablet Take 500 mg by mouth daily . 0 Active atorvastatin 80 mg oral tablet (1 source) HMG-CoA Reductase Inhibitor Start: 02-20-2020 atorvastatin (LIPITOR) 80 MG tablet benzonatate 200 mg oral capsule (1 source) Non-narcotic Antitussive Start: 12-15-2020 End: 12-22-2020 take 1 capsule by mouth three times daily as needed for cough benzonatate (TESSALON) 200 MG capsule Take 1 (one) capsule (200 mg total) by mouth 3 (three) times a day as needed for cough . 20 capsule 0 12/15/2020 12/22/2020 Active folic acid 1 mg oral tablet (1 source) take 1 tablet by mouth once daily folic acid (FOLVITE) 1 MG tablet Take 1 mg by mouth daily . 0 Active iv contrast (will be provided with radiology test) (1 source) Start: 12-25-2022 End: 12-26-2022 inject 1 dose intravenously once iv contrast (will be provided with radiology test) Indications: Migraine without aura and without status migrainosus, not intractable , Numbness and tingling of right face , Facial weakness MRI Brain Inject, intravenously, once for 1 dose.No IV access, insert saline lock prior to beginning of sedation, infusion, injection of imaging exam.Discontinue saline lock post exam. If Pt. has a central line or IVAD, may access for administration according to line specific nursing protocol.Once exam is complete flush line and de-access according to line specific nursing protocol in the MR contrast administration guidelines link 1 Each 0 12/25/2022 12/26/2022 Active Completed/Discontinued Medications Medication Drug Class(es) Dates Sig (Normalized) Sig (Original) acetaminophen 325 mg oral tablet (2 sources) Start: 09-01-2018 End: 09-01-2018 acetaminophen (TYLENOL) tablet 975 mg Problems Active Problems Problem Classification Problem Date Documented Date Episodic/Chronic Blindness and vision defects (3 sources) Bilateral hyperopia of eyes; Translations: [Hypermetropia, bilateral] 09-21-2022 Episodic Diabetes mellitus without complication (1 source) Hyperglycemia; Translations: [Elevated blood sugar] Episodic Essential hypertension (11 sources) Essential hypertension; Translations: [Essential (primary) hypertension] Onset: 03-14-2019 03-14-2019 Chronic Glaucoma (12 sources) Ocular hypertension; Translations: [Ocular hypertension, bilateral] Onset: 03-14-2019 03-14-2019 Chronic Headache; including migraine (7 sources) Migraine; Translations: [Other migraine, not intractable, without status migrainosus] Onset: 12-18-2022 Chronic Malaise and fatigue (4 sources) Fatigue; Translations: [Other fatigue] Onset: 11-19-2022 Episodic Miscellaneous mental health disorders (1 source) Psychologic conversion disorder; 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] Chronic Other circulatory disease (1 source) Elevated blood pressure; Translations: [Elevated blood pressure reading] Episodic Other connective tissue disease (4 sources) Weakness of face muscles; Translations: [Facial weakness] Episodic Other connective tissue disease (1 source) Facial weakness; Translations: [Facial weakness] Onset: 11-19-2022 Episodic Other eye disorders (11 sources) Optic cupping; Translations: [Glaucomatous optic atrophy, bilateral] Onset: 03-14-2019 03-14-2019 Chronic Other female genital disorders (11 sources) Complex atypical endometrial hyperplasia; 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]] Onset: 03-08-2012 03-08-2012 Chronic Other nervous system disorders (6 sources) Facial paresthesia; Translations: [Anesthesia of skin] Episodic Other nervous system disorders (1 source) Anesthesia of skin; Translations: [Numbness and tingling of right face] Onset: 12-18-2022 Episodic Other nervous system disorders (1 source) Paresthesia of skin; Translations: [Numbness and tingling of right face] Onset: 12-18-2022 Episodic Other upper respiratory infections (1 source) Acute upper respiratory infection, unspecified; Translations: [Acute upper respiratory infection, unspecified] Onset: 03-15-2023 Episodic Residual codes; unclassified (3 sources) Obstructive sleep apnea syndrome; Translations: [Obstructive sleep apnea (adult) (pediatric)] Chronic Residual codes; unclassified (1 source) Obstructive sleep apnea (adult) (pediatric); Translations: [TIM (obstructive sleep apnea)] Onset: 11-19-2022 Chronic Thyroid disorders (11 sources) Hypothyroidism; Translations: [Hypothyroidism, unspecified] Onset: 09-14-2014 09-14-2014 Chronic Unclassified (1 source) Yearly Exam Onset: 09-21-2022 Viral infection (2 sources) Disease caused by 2019-nCoV; Translations: [COVID-19] Onset: 12-16-2020 Episodic Past or Other Problems Problem Classification Problem Date Documented Da te Episodic/Chronic Abdominal pain (12 sources) Abdominal pain; Translations: [Acute pain in female pelvis] Onset: 09-14-2014 09-14-2014 Episodic Nausea and vomiting (1 source) Nausea; Translations: [Nausea] Episodic Nonspecific chest pain (1 source) Chest wall pain; Translations: [Chest wall pain] Episodic Other non-traumatic joint disorders (3 sources) Pain in right knee; Translations: [Pain in joint, lower leg] Onset: 11-05-2016 11-05-2016 Episodic Other non-traumatic joint disorders (4 sources) Knee pain; Translations: [Right medial knee pain] Onset: 11-05-2016 11-05-2016 Episodic Ovarian cyst (11 sources) Cyst of bilateral ovaries; Translations: [Unspecified ovarian cyst, right side] Onset: 09-14-2014 09-14-2014 Episodic Results Test Name Value Interpretation Reference Range Facil ity Vital Signs Date Time Vital Sign Value Performing Clinician Facility 11-13-2021 08:02-0400 Body temperature 98.01 [degF] Kae Alexander POST DOCTORAL FELLOW.TAKE UP SUPERVISOR Work Phone: [facility] 11-13-2021 08:02-0400 Body weight 87.09 kg Kae Alexander POST DOCTORAL FELLOW.TAKE UP SUPERVISOR Work Phone: [facility] 11-13-2021 08:02-0400 Diastolic blood pressure 68 mm[Hg] Kae Alexander POST DOCTORAL FELLOW.TAKE UP SUPERVISOR Work Phone: [facility] 11-13-2021 08:02-0400 Heart rate 80 /min Kae Tejadahausen POST DOCTORAL FELLOW.TAKE UP SUPERVISOR Work Phone: [facility] 11-13-2021 08:02-0400 Respiratory rate 18 /min Kae Tejadahausen POST DOCTORAL FELLOW.TAKE UP SUPERVISOR Work Phone: [facility] 11-13-2021 08:02-0400 SaO2% (BldA) [Mass fraction] 100 % Kae Alexander POST DOCTORAL FELLOW.TAKE UP SUPERVISOR Work Phone: [facility] 11-13-2021 08:02-0400 Systolic blood pressure 118 mm[Hg] Kae Tejadahaussheree POST DOCTORAL FELLOW.TAKE UP SUPERVISOR Work Phone: [facility] 12-16-2020 15:27-0500 Body temperature 98.49 [degF] Chair [facility] 12-16-2020 15:27-0500 Diastolic blood pressure 82 mm[Hg] Chair [facility] 12-16-2020 15:27-0500 Heart rate 92 /min Chair [facility] 12-16-2020 15:27-0500 Respiratory rate 16 /min Chair [facility] 12-16-2020 15:27-0500 SaO2% (BldA) [Mass fraction] 97 % Chair [facility] 12-16-2020 15:27-0500 Systolic blood pressure 115 mm[Hg] [facility] 03-11-2020 09:00-0500 BP Diastolic 85 mm[Hg] [facility] 03-11-2020 09:00-0500 BP Systolic 129 mm[Hg] Sophie Card [facility] 03-11-2020 09:00-0500 Pulse (Heart Rate) 82 /min Sophie Card [facility] 03-11-2020 09:00-0500 Pulse Oximetry 96 % Sophie Card [facility] 03-11-2020 09:00-0500 Respiratory Rate 18 /min Sophie Card [facility] 03-11-2020 07:50-0500 BMI (Body Mass Index) 35.9 kg/m2 Sophie Card [facility] 03-11-2020 07:50-0500 Body Temperature 98.6 [degF] Sophie Card [facility] 03-11-2020 07:50-0500 Body weight 86.18 kg Sophie Card [facility] 03-11-2020 07:50-0500 Height 154.9 cm [facility] 09-01-2018 20:30-0400 BP Diastolic 79 mm[Hg] [facility] 09-01-2018 20:30-0400 BP Systolic 120 mm[Hg] [facility] 09-01-2018 20:30-0400 Pulse (Heart Rate) 84 /min [facility] 09-01-2018 20:30-0400 Pulse Oximetry 97 % [facility] 09-01-2018 20:30-0400 Respiratory Rate 18 /min [facility] 09-01-2018 19:00-0400 Body Temperature 98.49 [degF] [facility] 09-01-2018 16:37-0400 BMI (Body Mass Index) 34.01 kg/m2 [facility] 09-01-2018 16:37-0400 Body weight 81.65 kg [facility] 09-01-2018 16:37-0400 Height 154.9 cm [facility] 11-05-2016 15:14-0400 BMI (Body Mass Index) 32.92 kg/m2 Enrrique Loyd [facility] Work Phone: 11-05-2016 15:14-0400 BP Diastolic 91 mm[Hg] Enrrique Loyd [facility] Work Phone: 11-05-2016 15:14-0400 BP Systolic 127 mm[Hg] Enrrique Loyd [facility] Work Phone: 11-05-2016 15:14-0400 Height 157.5 cm Enrrique Loyd [facility] Work Phone: 11-05-2016 15:14-0400 Pulse (Heart Rate) 99 /min Enrrique Loyd [facility] Work Phone: 11-05-2016 15:14-0400 Weight 81.65 kg Enrrique Loyd [facility] Work Phone: Encounters Encounter Date Encounter Type Care Provider Facility Start: 03-15-2023 ambulatory CRYSTAL BENÍTEZ [facility] Start: 12-24-2022 ambulatory Kae de luna APRN.CNP Work Phone: Neurology [facility] Procedures Date Procedure Procedure Detail Performing Clinician Start: 03-11-2020 Radiologic exam ches t single view Sophie Card Work Phone: Start: 03-11-2020 12 lead ECG Sophie Alberto basilio Stephie Work Phone: Start: 03-11-2020 CT of entire head Sophie Card Work Phone: Start: 03-11-2020 Basic metabolic pane l calcium ionized Sophie Robison Stephie Work Phone: Start: 03-11-2020 Prothrombin time Sophie Fitzpatrick cora Card Work Phone: Start: 03-11-2020 End: 03-11-2020 Glucose [Mass/volume] in Blood Sophie Rickichetna Card Work Phone: Start: 03-11-2020 Blood count complete auto&auto difrntl wbc Sophie Dominguezchetna Card Work Phone: Start: 12-13-2018 Follow-up visit Start: 11-29-2018 Follow-up visit Start: 09-01-2018 Troponin measurement Ai Bazan Work Phone: Start: 09-01-2018 Ct abdomen & pelvis w/contrast material Hubert Bazan Work Phone: Start: 09-01-2018 D-dimer assay, quantitative Hubert SinhaFitnessManager Work Phone: Start: 09-01-2018 Lactate [Moles/volum e] in Serum or Plasma Hubert SinhaFitnessManager Work Phone: Start: 09-01-2018 Urinalysis Hubert SinhaSensys Networksjusten Work Phone: Start: 09-01-2018 Radiologic exam ches t single view Hubert SinhaFitnessManager Work Phone: Start: 09-01-2018 Basic metabolic 2000 panel - Serum or Plasma Hubert SinhaFitnessManager Work Phone: Start: 09-01-2018 Complete blood count with white cell differential, automated Hubert Sinha[employer] Work Phone: Start: 09-01-2018 Complete blood count with white cell differential, manual Hubert SinhaFitnessManager Work Phone: Start: 09-01-2018 Natriuretic peptide. B prohormone N-Terminal [Mass/volume] in Serum or Plasma Hubert SinhaFitnessManager Work Phone: Start: 09-01-2018 Troponin measurement Ai Daniellethe grafter Work Phone: Start: 09-01-2018 12 lead ECG Hubert SinhaSensys Networksjusten Work Phone: Start: 02-18-2015 Lipid 1996 panel - S yajaira or Plasma Kae Alexander POST DOCTORAL FELLOW.TAKE UP SUPERVISOR Work Phone: Start: 02-18-2015 Mammography Kae Hawthorne POST DOCTORAL FELLOW.TAKE UP SUPERVISOR Work Phone: Plan of Treatment Date Care Activity Detail Author Start: 12-18-2025 Diabetes Screening Diabetes Screening [facility] Start: 11-19-2022 End: 01-19-2023 CBC W Auto Differential panel - Blood CBC + DIFF Lab Routine Other migraine without status migrainosus, not intractable Numbness and tingling of right face Expected: 11/19/2022, Expires: 01/19/2023 [facility] Work Phone: Payers Date Payer Category Payer Unknown [id number] 2022 Unknown [id number] 2016 Unknown [id number] 2016 Unknown [employer] PPO xxxxxxxxx 2016-Present xxxxxxxxx [id number] 2015 Unknown [id number] 2015 Unknown [id number] 2013 Unknown [id number] 1973 Unknown [id number] 1973 Unknown [id number] 1973 Unknown [id number] 1973 Unknown [id number] 1973 Unknown [id number] 1973 Unknown [id number] 1973 Unknown [id number] Unknown [id number] Social History Date Type Detail Facility Start: 11-05-2016 End: 03-19-2022 Tobacco smoking status NDIS Never smoker [facility] Work Phone: Start: 1975 Sex Assigned At Not on file [facility] Work Phone: Start: 09-01-2018 End: 03-19-2022 Tobacco use and exposure Never used [facility] Start: 09-01-2018 End: 12-25-2022 Alcohol intake Current drinker of alcohol (finding) [facility] Start: 11-03-2021 End: 11-13-2021 Exposure to SARS-CoV-2 (event) Not sure [facility] Start: 12-15-2020 History SDOH Alcohol Comment rare [facility] Start: 03-20-2021 End: 07-30-2022 Alcohol intake [facility] Start: 09-06-2020 History SDOH Alcohol Comment occasionally [facility] Start: 07-22-2022 End: 07-30-2022 Tobacco use panel [facility] National Score (1-10 0), lower number is lower risk 87 [facility] Start: 1975 Sex Assigned At Female [facility] Start: 12-14-2022 Gender identity Identifies as female gender (finding) [facility] Start: 12-14-2022 Sexual orientation Choose not to disclose [facility] Clinical Notes 12-16-2020 to 12-25-2022 Telephone Encounter - Jovita Valdes RN - 12/25/2022 9:26 AM ESTTelephone Encounter - Doretha Villagomez RN - 12/24/2022 12:01 PM Kae Collins APRN.TAKE UP SUPERVISOR - 11/19/2022 1:30 PM EDT Note Date & Type Note Facility 12-25-2022 Miscellaneous Notes Unfortunately they do not make 125mg tablets. I did send in a new prescription for the 100mg tablets. Benjamin ALLEN [employer] message sent to pt to let pt know of script for 100 mg tablets sent in. Patient requesting refill via [employer] . Last OV: 03/19/2022 Future OV: None scheduled Last prescribed: 11/19/2022 Requested Prescriptions Pending Prescriptions Disp Refills topiramate (TOPAMAX) 100 mg tablet 30 tablet 0 Sig: Take 1 tablet by mouth daily at bedtime. documented in this encounter [facility] 12-24-2022 Miscellaneous Notes AIMEE: 03/19/2022 Future OV: None scheduled documented in this encounter [facility] 12-14-2022 Miscellaneous Notes Pharmacy requesting refill via [facility] . Pharmacy requesting 90 day prescription Last OV: 11/19/2022 Future OV: None scheduled Last prescribed: 11/19/2022 Requested Prescriptions Pending Prescriptions Disp Refills topiramate (TOPAMAX) 25 mg tablet [Pharmacy Med Name: TOPIRAMATE 25 MG TABLET] 90 tablet 1 Sig: TAKE 1 TABLET BY MOUTH EVERYDAY AT BEDTIME documented in this encounter [facility] 11-19-2022 Note HNO ID: [id number] Author: Kae Alexander APRN.TAKE UP SUPERVISOR Service: ? Author Type: Nurse Practitioner Type: Progress Notes Filed: 11/19/2022 2:10 PM Note Text: [facility] [place] Follow-up Visit Follow-up note This visit was conducted via virtual platform. I have communicated my name and active licensure. The patient's identity and physical location were verified at the time of this visit. Either the patient or their legal account manager sales representative has been informed of the risks and benefits of -- and alternatives to -- treatment through a remote evaluation and consents to proceed with the evaluation remotely. November 19, 2022 HPI: Ms. Dickey presents today for a follow-up visit. Per her previous visit on 03/19/22: G43.809 Other migraine without status migrainosus, not intractable (primary encounter diagnosis) R20.0, R20.2 Numbness and tingling of right face R29.810 Facial weakness Comment: Patient previously seen for headaches associated with R facial weakness and paresthesias. At time of last appointment, pt reported recent renal stone and after discussion, decision was made to wean down and discontinue Topamax. She was instead started on gabapentin 300mg BID. Today she reports she attempted to trial medication changes, however, due to SE she restarted Topamax 100mg. Discussed risk of recurrence of renal stone and she states understanding. With use of Topamax she has significant improvement in migraines with only one to two since her last visit. No associated facial weakness or paresthesias. Will continue Topamax as previously prescribed; RF provided. R53.83 Other fatigue G47.33 TIM (obstructive sleep apnea) Comment: Hx of mild TIM. Attempted to restart PAP therapy after last visit, however, pt unable to tolerate mask (using nasal pillow). After discussion of alternative tx methods, she would like to determine if an oral appliance would be appropriate and consult placed to dentistry. Migraines have returned. These are less a migraine and more of a regular headache. Has woken up half a dozen times with mild R facial weakness and paresthesia's. No new or changing symptoms. Resolves within an hour or two upon waking. Will be associated with a headache. Seems to have more headaches when going to bed. Waking up in the middle of the night with a headache. Has also been having chest fluttering. No slurred speech Missed her appt for mouth guard. Granddaughter was having surgery. Life was very busy. Has gained 10lbs recently. Taking Tpx 100mg daily. No further kidney stones. Drinks plenty of fluids. Did go to the eye doctor and got new glasses. PAST MEDICAL HISTORY Diagnosis Date Complex endometrial hyperplasia with atypia Essential hypertension 03/14/2019 Fracture GERD (gastroesophageal reflux disease) Hypothyroid Kidney stones Migraines Post depression 1996 PAST SURGICAL HISTORY Procedure Laterality Date CHG DELIVERY 1993,1996,2000 FOREIGN BODY RETRIEVAL 98 foot HYSTERECTOMY HX still has ovaries LAPS TOTAL HYSTERECT 250 GM/< W/RMVL TUBE/OVARY 03/31/2012 Single-port total laparoscopic hysterectomy, bilateral salpingectomy, and cystoscopy. OVARIAN CYSTECTOMY 09/2014 right ovary SUCTION D AND C 2006 and 2011 lap, with biopsy TUBAL LIGATION, 2000 with last csection Current Outpatient Medications on File Prior to Visit Medication Sig topiramate (TOPAMAX) 100 mg tablet Take 1 tablet by mouth daily at bedtime. ZINC PICOLINATE ORAL Take 1 capsule by mouth once daily. (Patient not taking: Reported on 11/13/2021) sertraline (ZOLOFT) 50 mg tablet Take 1 tablet by mouth once daily. ibuprofen (MOTRIN) 600 mg tablet Take 1 tablet by mouth every 6 hours as needed for Pain. cholecalciferol (VITAMIN D3) 5,000 unit tab Take 5,000 Units by mouth once daily. cyanocobalamin (VITAMIN B-12) 1,000 mcg tab Take 1,000 mcg by mouth once daily. No current facility-administered medications on file prior to visit. Social History Tobacco Use Smoking status: Never Smokeless tobacco: Never Vaping Use Vaping Use: Never used Substance Use Topics Alcohol use: Yes Alcohol/week: 1.0 standard drink of alcohol Types: 1 Glasses of Wine (5oz) per week Comment: occasionally Drug use: No ALLERGIES Allergen Reactions Oxycodone Unknown Percocet [Oxycodone* Itching Review of Systems: Cardiopulmonary: denies chest pain, + palpitations Respiratory: denies shortness of breath GI/: denies recent nausea, vomiting, diarrhea, constipation, incontinence Musculoskeletal: denies weakness, + joint ache/pain Neuro: denies tremors, loss of feeling, dizziness, seizure, blackout, paresthesia, + facial paresthesia, + facial weakness, difficulty in speech, slurring of words, dysarthria, dysphagia, memory loss, + headache, vision changes, loss of hearing Physical Exam: Patient is alert and in no distress. Dress is ap (more content not included)... [facility] 11-19-2022 History of Presen t illness Narrative Images from the original note were not included. [facility] [place] Follow-up Visit Follow-up note This visit was conducted via virtual platform. I have communicated my name and active licensure. The patient's identity and physical location were verified at the time of this visit. Either the patient or their legal account manager sales representative has been informed of the risks and benefits of -- and alternatives to -- treatment through a remote evaluation and consents to proceed with the evaluation remotely. November 19, 2022 HPI: Ms. Dickey presents today for a follow-up visit. Per her previous visit on 03/19/22: G43.809 Other migraine without status migrainosus, not intractable (primary encounter diagnosis) R20.0, R20.2 Numbness and tingling of right face R29.810 Facial weakness Comment: Patient previously seen for headaches associated with R facial weakness and paresthesias. At time of last appointment, pt reported recent renal stone and after discussion, decision was made to wean down and discontinue Topamax. She was instead started on gabapentin 300mg BID. Today she reports she attempted to trial medication changes, however, due to SE she restarted Topamax 100mg. Discussed risk of recurrence of renal stone and she states understanding. With use of Topamax she has significant improvement in migraines with only one to two since her last visit. No associated facial weakness or paresthesias. Will continue Topamax as previously prescribed; RF provided. R53.83 Other fatigue G47.33 TMI (obstructive sleep apnea) Comment: Hx of mild TIM. Attempted to restart PAP therapy after last visit, however, pt unable to tolerate mask (using nasal pillow). After discussion of alternative tx methods, she would like to determine if an oral appliance would be appropriate and consult placed to dentistry. Migraines have returned. These are less a migraine and more of a regular headache. Has woken up half a dozen times with mild R facial weakness and paresthesia's. No new or changing symptoms. Resolves within an hour or two upon waking. Will be associated with a headache. Seems to have more headaches when going to bed. Waking up in the middle of the night with a headache. Has also been having chest fluttering. No slurred speech Missed her appt for mouth guard. Granddaughter was having surgery. Life was very busy. Has gained 10lbs recently. Taking Tpx 100mg daily. No further kidney stones. Drinks plenty of fluids. Did go to the eye doctor and got new glasses. PAST MEDICAL HISTORY Diagnosis Date Complex endometrial hyperplasia with atypia Essential hypertension 03/14/2019 Fracture GERD (gastroesophageal reflux disease) Hypothyroid Kidney stones Migraines Post depression 1996 PAST SURGICAL HISTORY Procedure Laterality Date CHG DELIVERY 1993,1996,2000 FOREIGN BODY RETRIEVAL 98 foot HYSTERECTOMY HX still has ovaries LAPS TOTAL HYSTERECT 250 GM/< W/RMVL TUBE/OVARY 03/31/2012 Single-port total laparoscopic hysterectomy, bilateral salpingectomy, and cystoscopy. OVARIAN CYSTECTOMY 09/2014 right ovary SUCTION D & C 2006 and 2011 lap, with biopsy TUBAL LIGATION, 2000 with last csection Current Outpatient Medications on File Prior to Visit Medication Sig topiramate (TOPAMAX) 100 mg tablet Take 1 tablet by mouth daily at bedtime. ZINC PICOLINATE ORAL Take 1 capsule by mouth once daily. (Patient not taking: Reported on 11/13/2021) sertraline (ZOLOFT) 50 mg tablet Take 1 tablet by mouth once daily. ibuprofen (MOTRIN) 600 mg tablet Take 1 tablet by mouth every 6 hours as needed for Pain. cholecalciferol (VITAMIN D3) 5,000 unit tab Take 5,000 Units by mouth once daily. cyanocobalamin (VITAMIN B-12) 1,000 mcg tab Take 1,000 mcg by mouth once daily. No current facility-administered medications on file prior to visit. Social History Tobacco Use Smoking status: Never Smokeless tobacco: Never Vaping Use Vaping Use: Never used Substance Use Topics Alcohol use: Yes Alcohol/week: 1.0 standard drink of alcohol Types: 1 Glasses of Wine (5oz) per week Comment: occasionally Drug use: No ALLERGIES Allergen Reactions Oxycodone Unknown Percocet [Oxycodone* Itching Review of Systems: Cardiopulmonary: denies chest pain, + palpitations Respiratory: denies shortness of breath GI/: denies recent nausea, vomiting, diarrhea, constipation, incontinence Musculoskeletal: denies weakness, + joint ache/pain Neuro: denies tremors, loss of feeling, dizziness, seizure, blackout, paresthesia, + facial paresthesia, + facial weakness, difficulty in speech, slurring of words, dysarthria, dysphagia, memory loss, + headache, vision changes, loss of hearing Physical Exam: Patient is alert and in no distress. Dress is appropriate. Mood is appropriate Breathing appears regular and unstressed Neurologic examination: Exam is observational at best. General Appearance: well appearing, in no acute distress Mental status evaluation during the interview and examination showed normal level of consciousness, orientation, language, memory, praxis, and higher intellectual function Affect: Normal Speech: normal Cranial Nerves: III, IV, -EOMI: full. VII-face is symmetric without evidence of weakness. VIII-hearing intact. XII-tongue protrudes midline with normal movements. Labs/studies: POC Basic Metabolic Panel Order: [id number] Component Ref Range & Units 5 mo ago Glucose 65 - 99 mg/dL 96 BUN 8 - 25 mg/dL 20 Creatinine 0.40 - 1.10 mg/dL 0.86 GFR >=60 mL/min/1.73 m2 83 Comment: Estimated GFR was calculated using the 2020 CKD-EPI creatinine equation. Sodium 135 - 145 mmol/L 142 Potassium 3.5 - 5.1 mmol/L 3.6 Chloride 98 - 108 mmol/L 109 High TCO2 21 - 32 mmol/L 21 Ionized Calcium 4.5 - 5.3 mg/dL 4.5 Resulting Agency [facility] Narrative Performed by [facility] has implemented the eGFR calculation approach that does not have a coefficient for race that conforms to the NKF-ASN Task Force Recommendations. Specimen Collected: 09/24/21 6:15 PM Last Resulted: 09/24/21 6:17 PM Received From: [facility] Result Received: 11/13/21 7:32 AM POC CBC and Differential Order: [id number] Component Ref Range & Units 5 mo ago WBC 4.5 - 11 K/mcL 10.41 RBC 4 - 5.2 M/mcL 4.16 Hemoglobin 12 - 16 g/dL 12.9 Hematocrit 36 - 46 % 37.4 MCV 80 - 100 fL 89.9 MCH 26 - 34 pg 31.0 MCHC 31 - 37 g/dL 34.5 RDW - CV 11.6 - 14.8 % 12.2 Platelets 150 - 400 K/mcL 219 MPV 9.4 - 12.4 fL 11.1 Neutrophils % 81.9 Lymphocytes % 12.6 Monocytes % 4.9 Eosinophils % 0.3 Basophils % 0.1 IG Percent % 0.20 Comment: The IG parameter is the percentage of metamyelocytes, myelocytes and promyelocytes. An immature granulocyte count (IG) of 1% or more suggests the possibility of infection, an IG count of 3% is very likely related to an infection. Neutrophils Abs 1.7 - 7 K/mcL 8.53 High Lymphocytes Abs 0.9 - 4 K/mcL 1.31 Monocytes Abs 0.3 - 0.9 K/mcL 0.51 Eosinophils Abs 0 - 0.5 K/mcL 0.03 Basophils Abs 0 - 0.3 K/mcL 0.01 IG Absolute 0 - 0.3 K/mcL 0.02 Resulting Agency [facility] Specimen Collected: 09/24/21 6:06 PM Last Resulted: 09/24/21 6:11 PM Received From: [facility] Result Received: 11/13/21 7:32 AM Previously Reviewed: MRI Report MRI BRAIN WO/W IVCON Exam End: 09/19/2020 3:35 PM (Final result) Narrative: * * *Final Report* * * DATE OF EXAM: Sep 19 2020 3:35PM GWENDOLYN [id number] - MRI BRAIN WO/W IVCON / PROCEDURE REASON: multiple diagnoses * * * * Physician Interpretation * * * * EXAMINATION: MRI BRAIN WO/W IVCON CLINICAL HISTORY: Chronic mixed headache syndrome. Right facial numbness and paresthesias. TECHNIQUE: Intracranial mass protocol with and without gadolinium with supplemental high-resolution coronal and axial gadolinium-enhanced T1 images of the upper brainstem. MQ: [id number] Contrast: 18 mL Dotarem intravenous COMPARISON: None. RESULT: Acute Change: There is no evidence of restricted diffusion to suggest an acute infarct. Hemorrhage: No clear evidence of prior parenchymal hemorrhage within the constraints of acquisition. Mass Lesion/ Mass Effect: No evidence of a soft tissue mass in the prepontine or CP angle cisterns. No abnormal enhancement is noted otherwise along the course of the cisternal segments of the cranial nerves. No abnormal leptomeningeal enhancement is noted in the basilar cisterns. No abnormal parenchymal or leptomeningeal enhancement is appreciated otherwise following gadolinium administration. No significant mass effect. Chronic Change: The white matter is within normal limits of signal intensity for age. Specifically, no evidence of intracranial demyelinating disease by MRI. Parenchyma: No significant volume loss for age. The brain parenchyma is otherwise within normal limits of signal intensity and morphology. Ventricles: Normal caliber and morphology. Skull Base: Hypothalamic and pituitary region are normal. Craniocervical junction is normal. No significant marrow replacement process in the skull base.. Vasculature: A normal flow void is noted in the major dural venous sinuses suggesting patency by spin echo criteria. Other: The visualized paranasal sinuses and mastoid air cells are clear. The orbits and extracranial soft tissues are unremarkable. Impression: IMPRESSION: Normal study. Scalp Treatment Specialist: SOY Transcribe Date/Time: Sep 19 2020 3:35P Dictated by : KENRICK WILKERSON MD This examination was interpreted and the report reviewed and electronically signed by: KENRICK WILKERSON MD on Sep 19 2020 3:42PM EST Complete Results Assessment/Plan: G43.809 Other migraine without status migrainosus, not intractable (primary encounter diagnosis) R20.0, R20.2 Numbness and tingling of right face R29.810 Facial weakness Comment: Patient previously seen for headaches associated with R facial weakness and paresthesias. She is currently taking Topamax 100mg without SE or concerns (of note, pt with hx of renal stone and understands risk of recurrence with use of Tpx). At time of appointment today she reports that headaches have become more frequent. Has had roughly 6 episodes where she has had a headache associated with mild R facial weakness and paresthesias. Symptoms will resolve within 1 to 2 hours and are always associated with a headache. She denies associated speech changes. She does note that headaches are more frequent at night and will wake up overnight with a headache. Discussed further treatment of sleep apnea as noted below. We will attempt to increase Topamax to 125 mg nightly and if no relief after 2 weeks can increase to 150mg. However, discussed that should symptoms not improve and headaches, weakness, paresthesias continue to occur, would consider repeating MRI brain to ensure no new intracranial process. She will notify the office in 2 weeks regarding symptoms. Updated lab work ordered for monitoring given long-term use of medication. R53.83 Other fatigue G47.33 TIM (obstructive sleep apnea) Comment: Hx of mild TIM. Attempted to restart PAP therapy in past, however, pt unable to tolerate mask (using nasal pillow). Consult was placed to dentistry at time of previous appointment, however, she was unable to attend scheduled appointment. We will place new consult at this time to determine if an oral appliance would be appropriate. [facility] on 11/19/22 COMP METABOLIC PANEL CBC + DIFF CONSULT TO DENTISTRY Kae Alexander APRN.CNP I spent a total of 30 minutes on the date of the service which included preparing to see the patient, [id number] patient care, completing clinical documentation, obtaining and/or reviewing separately obtained history, performing a medically appropriate examination, and counseling and educating the patient/family/caregiver. documented in this encounter [facility] 09-21-2022 Note HNO ID: [id number] Author: Noemi Erickson OD Service: ? Author Type: SCREEN PRINTING EQUIPMENT SETTER Type: Progress Notes Filed: 09/21/2022 9:14 AM Note Text: ASSESSMENT/PLAN: 1. Hyperopia, bilateral - ICD9: 367.0, ICD10: H52.03 (primary diagnosis) 2. Regular astigmatism, bilateral - ICD9: 367.21, ICD10: H52.223 3. Presbyopia - ICD9: 367.4, ICD10: H52.4 Discussed the option of progressive lenses to be used for computer work 4. Glaucoma suspect of both eyes - ICD9: 365.00, ICD10: H40.003 Discussed testing at a later date. Return for glaucoma testing at her convenience Reccommended yearly exams. Noemi Erickson, OD I have confirmed and edited as necessary the relevant ophthalmic history, ROS, and the neuro exam findings as obtained by others. [facility] 09-21-2022 Instructions Noemi Erickson OD - 09/21/2022 9:13 AM EDT ASSESSMENT/PLAN: 1. Hyperopia, bilateral - ICD9: 367.0, ICD10: H52.03 (primary diagnosis) 2. Regular astigmatism, bilateral - ICD9: 367.21, ICD10: H52.223 3. Presbyopia - ICD9: 367.4, ICD10: H52.4 Discussed the option of progressive lenses to be used for computer work 4. Glaucoma suspect of both eyes - ICD9: 365.00, ICD10: H40.003 Discussed testing at a later date. Return for glaucoma testing at her convenience Reccommended yearly exams. documented in this encounter [facility] 09-21-2022 History of Presen t illness Narrative ASSESSMENT/PLAN: 1. Hyperopia, bilateral - ICD9: 367.0, ICD10: H52.03 (primary diagnosis) 2. Regular astigmatism, bilateral - ICD9: 367.21, ICD10: H52.223 3. Presbyopia - ICD9: 367.4, ICD10: H52.4 Discussed the option of progressive lenses to be used for computer work 4. Glaucoma suspect of both eyes - ICD9: 365.00, ICD10: H40.003 Discussed testing at a later date. Return for glaucoma testing at her convenience Reccommended yearly exams. Noemi Erickson, OD I have confirmed and edited as necessary the relevant ophthalmic history, ROS, and the neuro exam findings as obtained by others. documented in this encounter [facility] 03-19-2022 Note HNO ID: [id number] Author: Kae Alexander APRN.TAKE UP SUPERVISOR Service: ? Author Type: Nurse Practitioner Type: Progress Notes Filed: 03/19/2022 11:55 AM Note Text: [facility] [place] Follow-up Visit Follow-up note March 19, 2022 HPI: Ms. Dickey presents today for a follow-up visit. Per her previous visit on 11/13/21: G43.809 Other migraine without status migrainosus, not intractable (primary encounter diagnosis) R20.0, R20.2 Numbness and tingling of right face R29.810 Facial weakness Comment: Patient previously seen for headaches associated with R facial weakness and paresthesias. Previous MRI brain WO/W unremarkable for etiology of sx. At time of last appointment she reported increase in frequency of headaches and was having four per month. Topamax was increased to 125mg QHS with some improvement in symptoms. However, she reports she did run out of 25mg tablets in interim. Headaches have worsened over the past two weeks at which time she experienced one migraine with associated bilateral forehead numbness. Of note, she also reports that she experienced a kidney stone in September. On further discussion, she has had additional kidney stones while on Topamax and after reviewing SE of medication it was decided to titrate down and DC the medication. Discussed alternative medication options such as propanolol, gabapentin, or Keppra. As she is also reporting hot flashes at night and possible menopausal symptoms, will begin gabapentin 300mg BID (while simultaneously weaning down Topamax by 25mg weekly). She may continue to use prn OTC abortive medications for headache relief. R53.83 Other fatigue G47.33 TIM (obstructive sleep apnea) Comment: Hx of mild TIM after sleep study completed in first half of 2020. She was started on PAP therapy but has since discontinued use as symptoms were mild. Today she reports increased fatigue, worsening of headaches most notable overnight and in the morning upon waking, snoring, and possible start of menopause. As untreated TIM may lead to worsening of headaches as well as fatigue, discussed restarting PAP and she is agreeable. Will restart at previous settings and obtain download in one month. She did not wean down the Topamax and start the gabapentin in the interim. She has not had another kidney stone. 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 Has increased fluids. Has been eating less junk food. Hot flashes have improved. She did try wearing the CPAP again. She felt like she was very restricted. She has a nasal mask. Denies facial numbness, weakness, tingling. Has been having headaches from being tired; working seven days per week. Taking Tylenol here and there. No migraines. Only one to two over the past couple months. No migraines with associated weakness/paresthesias. PAST MEDICAL HISTORY Diagnosis Date Complex endometrial hyperplasia with atypia Essential hypertension 03/14/2019 Fracture GERD (gastroesophageal reflux disease) Hypothyroid Kidney stones Migraines Post depression 1996 PAST SURGICAL HISTORY Procedure Laterality Date CHG DELIVERY 1993,1996,2000 FOREIGN BODY RETRIEVAL 98 foot HYSTERECTOMY HX still has ovaries LAPS TOTAL HYSTERECT 250 GM/< W/RMVL TUBE/OVARY 03/31/2012 Single-port total laparoscopic hysterectomy, bilateral salpingectomy, and cystoscopy. OVARIAN CYSTECTOMY 09/2014 right ovary SUCTION D AND C 2006 and 2011 lap, with biopsy TUBAL LIGATION, 2000 with last csection Current Outpatient Medications on File Prior to Visit Medication Sig gabapentin (NEURONTIN) 300 mg capsule Take 1 capsule by mouth twice daily for 90 days. topiramate (TOPAMAX) 25 mg tablet Take 1 tablet by mouth daily at bedtime for 14 doses. ZINC PICOLINATE ORAL Take 1 capsule by mouth once daily. (Patient not taking: Reported on 11/13/2021) sertraline (ZOLOFT) 50 mg tablet Take 1 tablet by mouth once daily. lisinopril (ZESTRIL, PRINIVIL) 5 mg tablet (Patient not taking: Reported on 05/13/2020 ) ibuprofen (MOTRIN) 600 mg tablet Take 1 tablet by mouth every 6 hours as needed for Pain. acetaminophen-codeine (TYLENOL-CODEINE #3) 300-30 mg per tablet Take 1 tablet by mouth every 4 hours as needed for Pain. (Patient not taking: Reported on 11/14/2020) buPROPion XL (WELLBUTRIN XL) 150 mg 24 hr tablet Take 150 mg by mouth once daily. (Patient not taking: Reported on 05/13/2020 ) THYROID,PORK (NATURE-THROID ORAL) Take by mouth. (Patient not taking: Reported on 05/13/2020 ) cholecalciferol (VITAMIN D3) 5,000 unit tab Take 5,000 Units by mouth once daily. cyanocobalamin (VITAMIN B-12) 1,000 mcg tab Take 1,000 mcg by mouth once daily. acetaminophen-codeine (TYLENOL-COD #3) 300-30 mg per tablet Take 1-2 tablets by mouth every 4 hours as needed. (Patient not taking: Reported on 03/20/2021) naproxen sodium (ALEVE (more content not included)... [facility] 03-19-2022 History of Presen t illness Narrative Images from the original note were not included. [facility] [place] Follow-up Visit Follow-up note March 19, 2022 HPI: Ms. Dickey presents today for a follow-up visit. Per her previous visit on 11/13/21: G43.809 Other migraine without status migrainosus, not intractable (primary encounter diagnosis) R20.0, R20.2 Numbness and tingling of right face R29.810 Facial weakness Comment: Patient previously seen for headaches associated with R facial weakness and paresthesias. Previous MRI brain WO/W unremarkable for etiology of sx. At time of last appointment she reported increase in frequency of headaches and was having four per month. Topamax was increased to 125mg QHS with some improvement in symptoms. However, she reports she did run out of 25mg tablets in interim. Headaches have worsened over the past two weeks at which time she experienced one migraine with associated bilateral forehead numbness. Of note, she also reports that she experienced a kidney stone in September. On further discussion, she has had additional kidney stones while on Topamax and after reviewing SE of medication it was decided to titrate down and DC the medication. Discussed alternative medication options such as propanolol, gabapentin, or Keppra. As she is also reporting hot flashes at night and possible menopausal symptoms, will begin gabapentin 300mg BID (while simultaneously weaning down Topamax by 25mg weekly). She may continue to use prn OTC abortive medications for headache relief. R53.83 Other fatigue G47.33 TIM (obstructive sleep apnea) Comment: Hx of mild TIM after sleep study completed in first half of 2020. She was started on PAP therapy but has since discontinued use as symptoms were mild. Today she reports increased fatigue, worsening of headaches most notable overnight and in the morning upon waking, snoring, and possible start of menopause. As untreated TIM may lead to worsening of headaches as well as fatigue, discussed restarting PAP and she is agreeable. Will restart at previous settings and obtain download in one month. She did not wean down the Topamax and start the gabapentin in the interim. She has not had another kidney stone. 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 Has increased fluids. Has been eating less junk food. Hot flashes have improved. She did try wearing the CPAP again. She felt like she was very restricted. She has a nasal mask. Denies facial numbness, weakness, tingling. Has been having headaches from being tired; working seven days per week. Taking Tylenol here and there. No migraines. Only one to two over the past couple months. No migraines with associated weakness/paresthesias. PAST MEDICAL HISTORY Diagnosis Date Complex endometrial hyperplasia with atypia Essential hypertension 03/14/2019 Fracture GERD (gastroesophageal reflux disease) Hypothyroid Kidney stones Migraines Post depression 1996 PAST SURGICAL HISTORY Procedure Laterality Date CHG DELIVERY 1993,1996,2000 FOREIGN BODY RETRIEVAL 98 foot HYSTERECTOMY HX still has ovaries LAPS TOTAL HYSTERECT 250 GM/< W/RMVL TUBE/OVARY 03/31/2012 Single-port total laparoscopic hysterectomy, bilateral salpingectomy, and cystoscopy. OVARIAN CYSTECTOMY 09/2014 right ovary SUCTION D & C 2006 and 2011 lap, with biopsy TUBAL LIGATION, 2000 with last csection Current Outpatient Medications on File Prior to Visit Medication Sig gabapentin (NEURONTIN) 300 mg capsule Take 1 capsule by mouth twice daily for 90 days. topiramate (TOPAMAX) 25 mg tablet Take 1 tablet by mouth daily at bedtime for 14 doses. ZINC PICOLINATE ORAL Take 1 capsule by mouth once daily. (Patient not taking: Reported on 11/13/2021) sertraline (ZOLOFT) 50 mg tablet Take 1 tablet by mouth once daily. lisinopril (ZESTRIL, PRINIVIL) 5 mg tablet (Patient not taking: Reported on 05/13/2020 ) ibuprofen (MOTRIN) 600 mg tablet Take 1 tablet by mouth every 6 hours as needed for Pain. acetaminophen-codeine (TYLENOL-CODEINE #3) 300-30 mg per tablet Take 1 tablet by mouth every 4 hours as needed for Pain. (Patient not taking: Reported on 11/14/2020) buPROPion XL (WELLBUTRIN XL) 150 mg 24 hr tablet Take 150 mg by mouth once daily. (Patient not taking: Reported on 05/13/2020 ) THYROID,PORK (NATURE-THROID ORAL) Take by mouth. (Patient not taking: Reported on 05/13/2020 ) cholecalciferol (VITAMIN D3) 5,000 unit tab Take 5,000 Units by mouth once daily. cyanocobalamin (VITAMIN B-12) 1,000 mcg tab Take 1,000 mcg by mouth once daily. acetaminophen-codeine (TYLENOL-COD #3) 300-30 mg per tablet Take 1-2 tablets by mouth every 4 hours as needed. (Patient not taking: Reported on 03/20/2021) naproxen sodium (ALEVE) 220 mg cap Take by mouth. (Patient not taking: Reported on 09/06/2020 ) No current facility-administered medications on file prior to visit. Social History Tobacco Use Smoking status: Never Smokeless tobacco: Never Substance Use Topics Alcohol use: Yes Alcohol/week: 1.0 standard drink Types: 1 Glasses of Wine (5oz) per week Comment: occasionally Drug use: No ALLERGIES Allergen Reactions Acetaminophen Unknown Oxycodone Unknown Percocet [Oxycodone* Itching Review of Systems: Cardiopulmonary: denies chest pain, palpitations Respiratory: denies shortness of breath GI/: denies recent nausea, vomiting, diarrhea, constipation, incontinence Musculoskeletal: denies weakness, + joint ache/pain Neuro: denies tremors, loss of feeling, dizziness, seizure, blackout, paresthesia, facial paresthesia, facial weakness, difficulty in speech, slurring of words, dysarthria, dysphagia, memory loss, + headache, vision changes, loss of hearing Physical Exam: 03/19/22 1004 BP: (P) 145/90 Pulse: (P) 84 Resp: (P) 16 Temp: (P) 36.9 C (98.4 F) SpO2: (P) 97% Weight: (P) 88.6 kg (195 lb 6.4 oz) Patient is alert and in no distress. Dress is appropriate. Mood is appropriate Breathing appears regular and unstressed Neurologic examination: Cognitively intact. No deficits. No formal MMSE performed. CN: Pupils equal and reactive to light, extraocular movements intact with no nystagmus, face is symmetric with no facial droop, hearing intact bilaterally, tongue is midline with no deviation, shoulder shrug is symmetric. Motor exam shows 5/5 strength symmetric through the upper and lower extremities in all groups tested. Sensory intact to light touch in all extremities. Vibratory sensation is intact and symmetric all extremities. Deep tendon reflexes are brisk and symmetric at the biceps, brachioradialis, triceps, patella, and achilles bilaterally. Negative Vee's bilaterally. Coordination: No dysmetria on finger to nose. No tremors noted. No drift seen. Gait normal in stance and pattern. Labs/studies: POC Basic Metabolic Panel Order: [id number] Component Ref Range & Units 5 mo ago Glucose 65 - 99 mg/dL 96 BUN 8 - 25 mg/dL 20 Creatinine 0.40 - 1.10 mg/dL 0.86 GFR >=60 mL/min/1.73 m2 83 Comment: Estimated GFR was calculated using the 2020 CKD-EPI creatinine equation. Sodium 135 - 145 mmol/L 142 Potassium 3.5 - 5.1 mmol/L 3.6 Chloride 98 - 108 mmol/L 109 High TCO2 21 - 32 mmol/L 21 Ionized Calcium 4.5 - 5.3 mg/dL 4.5 Resulting Agency [facility] Narrative Performed by [facility] has implemented the eGFR calculation approach that does not have a coefficient for race that conforms to the NKF-ASN Task Force Recommendations. Specimen Collected: 09/24/21 6:15 PM Last Resulted: 09/24/21 6:17 PM Received From: [facility] Result Received: 11/13/21 7:32 AM POC CBC and Differential Order: [id number] Component Ref Range & Units 5 mo ago WBC 4.5 - 11 K/mcL 10.41 RBC 4 - 5.2 M/mcL 4.16 Hemoglobin 12 - 16 g/dL 12.9 Hematocrit 36 - 46 % 37.4 MCV 80 - 100 fL 89.9 MCH 26 - 34 pg 31.0 MCHC 31 - 37 g/dL 34.5 RDW - CV 11.6 - 14.8 % 12.2 Platelets 150 - 400 K/mcL 219 MPV 9.4 - 12.4 fL 11.1 Neutrophils % 81.9 Lymphocytes % 12.6 Monocytes % 4.9 Eosinophils % 0.3 Basophils % 0.1 IG Percent % 0.20 Comment: The IG parameter is the percentage of metamyelocytes, myelocytes and promyelocytes. An immature granulocyte count (IG) of 1% or more suggests the possibility of infection, an IG count of 3% is very likely related to an infection. Neutrophils Abs 1.7 - 7 K/mcL 8.53 High Lymphocytes Abs 0.9 - 4 K/mcL 1.31 Monocytes Abs 0.3 - 0.9 K/mcL 0.51 Eosinophils Abs 0 - 0.5 K/mcL 0.03 Basophils Abs 0 - 0.3 K/mcL 0.01 IG Absolute 0 - 0.3 K/mcL 0.02 Resulting Agency [facility] Specimen Collected: 09/24/21 6:06 PM Last Resulted: 09/24/21 6:11 PM Received From: [facility] Result Received: 11/13/21 7:32 AM Previously Reviewed: MRI Report MRI BRAIN WO/W IVCON Exam End: 09/19/2020 3:35 PM (Final result) Narrative: * * *Final Report* * * DATE OF EXAM: Sep 19 2020 3:35PM [facility] 0295 - MRI BRAIN WO/W IVCON / PROCEDURE REASON: multiple diagnoses * * * * Physician Interpretation * * * * EXAMINATION: MRI BRAIN WO/W IVCON CLINICAL HISTORY: Chronic mixed headache syndrome. Right facial numbness and paresthesias. TECHNIQUE: Intracranial mass protocol with and without gadolinium with supplemental high-resolution coronal and axial gadolinium-enhanced T1 images of the upper brainstem. MQ: MRBWOW_2 Contrast: 18 mL Dotarem intravenous COMPARISON: None. RESULT: Acute Change: There is no evidence of restricted diffusion to suggest an acute infarct. Hemorrhage: No clear evidence of prior parenchymal hemorrhage within the constraints of acquisition. Mass Lesion/ Mass Effect: No evidence of a soft tissue mass in the prepontine or CP angle cisterns. No abnormal enhancement is noted otherwise along the course of the cisternal segments of the cranial nerves. No abnormal leptomeningeal enhancement is noted in the basilar cisterns. No abnormal parenchymal or leptomeningeal enhancement is appreciated otherwise following gadolinium administration. No significant mass effect. Chronic Change: The white matter is within normal limits of signal intensity for age. Specifically, no evidence of intracranial demyelinating disease by MRI. Parenchyma: No significant volume loss for age. The brain parenchyma is otherwise within normal limits of signal intensity and morphology. Ventricles: Normal caliber and morphology. Skull Base: Hypothalamic and pituitary region are normal. Craniocervical junction is normal. No significant marrow replacement process in the skull base.. Vasculature: A normal flow void is noted in the major dural venous sinuses suggesting patency by spin echo criteria. Other: The visualized paranasal sinuses and mastoid air cells are clear. The orbits and extracranial soft tissues are unremarkable. Impression: IMPRESSION: Normal study. Scalp Treatment Specialist: SOY Transcribe Date/Time: Sep 19 2020 3:35P Dictated by : KENRICK WILKERSON MD This examination was interpreted and the report reviewed and electronically signed by: KENRICK WILKERSON MD on Sep 19 2020 3:42PM EST Complete Results Assessment/Plan: G43.809 Other migraine without status migrainosus, not intractable (primary encounter diagnosis) R20.0, R20.2 Numbness and tingling of right face R29.810 Facial weakness Comment: Patient previously seen for headaches associated with R facial weakness and paresthesias. At time of last appointment, pt reported recent renal stone and after discussion, decision was made to wean down and discontinue Topamax. She was instead started on gabapentin 300mg BID. Today she reports she attempted to trial medication changes, however, due to SE she restarted Topamax 100mg. Discussed risk of recurrence of renal stone and she states understanding. With use of Topamax she has significant improvement in migraines with only one to two since her last visit. No associated facial weakness or paresthesias. Will continue Topamax as previously prescribed; RF provided. R53.83 Other fatigue G47.33 TIM (obstructive sleep apnea) Comment: Hx of mild TIM. Attempted to restart PAP therapy after last visit, however, pt unable to tolerate mask (using nasal pillow). After discussion of alternative tx methods, she would like to determine if an oral appliance would be appropriate and consult placed to dentistry. Office Visit on 03/19/22 CONSULT TO DENTISTRY Kae Alexander APRN.MAXIMINO I spent a total of 35 minutes on the date of the service which included preparing to see the patient, [id number] patient care, completing clinical documentation, obtaining and/or reviewing separately obtained history, performing a medically appropriate examination, counseling and educating the patient/family/caregiver, and ordering medications, tests, or procedures. documented in this encounter [facility] 11-13-2021 History of Presen t illness Narrative Images from the original note were not included. [facility] [place] Follow-up Visit Follow-up note November 13, 2021 HPI: Ms. Dickey presents today for a follow-up visit. Per her previous visit on 07/24/21: G43.809 Other migraine without status migrainosus, not intractable (primary encounter diagnosis) R20.0, R20.2 Numbness and tingling of right face R29.810 Facial weakness Comment: Patient previously seen for headaches associated with R facial weakness and paresthesias. Negative workup completed in the past at [facility]. MRI brain WO/W unremarkable and without findings of acute infarct, hemorrhage, mass, demyelinating disease. Since time of previous appointment she reports migraines have increased in frequency and has recently had four per month. Also having minor headaches in between. No increase or return of associated neurological deficits. She is currently taking Topamax 100mg with no SE. Discussed options today to further treat migraines including increasing Topamax dose verses addition of alternative medication such as propanolol. Reviewed SE of each and at this time she would like to trial increase in Topamax dose. Will increase slowly to 125mg QHS and if no improvement after two weeks can further increase to 150mg QHS. If no improvement in sx or SE occur she will contact the office at which time propanolol can be initiated. R53.83 Other fatigue Comment: Pt still noting increased fatigue. Hx of COVID x2 since December of last year which was felt to be contributing to sx. Previously underwent sleep study in 07/29. Though of note, hx of TIM with use of PAP. Blood work completed since time of previous appointment and unremarkable with exception of persistently low vitamin D. Will have patient restart supplement after visit today. Recommend continuing to work on sleep schedule and getting adequate restful sleep. Headaches have worsened since her past visit. Had a severe headache at 2am about two weeks ago. Had some associated balance loss and light and sound sensitivity. Had facial numbness to the forehead. No facial drooping. Numbness in the hands. Still waking up with headaches daily. Not full migraines. Headaches resolve around lunch. Will take Tylenol or ibuprofen. Possibly entering menopause; having hot flashes. States she has been snoring at night. Used a PAP in the past. Only used a CPAP for roughly three to four months. Had partial hysterectomy; only ovaries. Feels she could nap during the day; typically not a nap person. Took a nap yesterday. Feels exhausted at night. Struggling to wake up in the morning. States she has been gaining weight. Currently taking Topamax 100mg. Ran out of 25mg tablets. [place] like increase to 125mg had helped her increase in headaches. Had a kidney stone about five weeks ago. Hx of kidney stones as well and now has had two or three while on Topamax. PAST MEDICAL HISTORY Diagnosis Date Complex endometrial hyperplasia with atypia Essential hypertension 03/14/2019 Fracture GERD (gastroesophageal reflux disease) Hypothyroid Kidney stones Migraines Post depression 1996 PAST SURGICAL HISTORY Procedure Laterality Date CHG DELIVERY 1993,1996,2000 FOREIGN BODY RETRIEVAL 98 foot HYSTERECTOMY HX still has ovaries LAPS TOTAL HYSTERECT 250 GM/< W/RMVL TUBE/OVARY 03/31/2012 Single-port total laparoscopic hysterectomy, bilateral salpingectomy, and cystoscopy. OVARIAN CYSTECTOMY 09/2014 right ovary SUCTION D & C 2006 and 2011 lap, with biopsy TUBAL LIGATION, 2000 with last csection Current Outpatient Medications on File Prior to Visit Medication Sig topiramate (TOPAMAX) 100 mg tablet TAKE 1 TABLET BY MOUTH EVERYDAY AT BEDTIME topiramate (TOPAMAX) 25 mg tablet Take 1 tablet by mouth daily at bedtime. Take in addition to one 100mg tablet ZINC PICOLINATE ORAL Take 1 capsule by mouth once daily. sertraline (ZOLOFT) 50 mg tablet Take 1 tablet by mouth once daily. lisinopril (ZESTRIL, PRINIVIL) 5 mg tablet (Patient not taking: Reported on 05/13/2020 ) ibuprofen (MOTRIN) 600 mg tablet Take 1 tablet by mouth every 6 hours as needed for Pain. acetaminophen-codeine (TYLENOL-CODEINE #3) 300-30 mg per tablet Take 1 tablet by mouth every 4 hours as needed for Pain. (Patient not taking: Reported on 11/14/2020) buPROPion XL (WELLBUTRIN XL) 150 mg 24 hr tablet Take 150 mg by mouth once daily. (Patient not taking: Reported on 05/13/2020 ) THYROID,PORK (NATURE-THROID ORAL) Take by mouth. (Patient not taking: Reported on 05/13/2020 ) Cholecalciferol, Vitamin D3, (VITAMIN D-3) 5,000 unit tab Take 5,000 Units by mouth once daily. cyanocobalamin (VITAMIN B-12) 1,000 mcg tab Take 1,000 mcg by mouth once daily. acetaminophen-codeine (TYLENOL-COD #3) 300-30 mg per tablet Take 1-2 tablets by mouth every 4 hours as needed. (Patient not taking: Reported on 03/20/2021) naproxen sodium (ALEVE) 220 mg cap Take by mouth. (Patient not taking: Reported on 09/06/2020 ) No current facility-administered medications on file prior to visit. Social History Tobacco Use Smoking status: Never Smokeless tobacco: Never Substance Use Topics Alcohol use: Yes Alcohol/week: 1.0 standard drink Types: 1 Glasses of Wine (5oz) per week Comment: occasionally Drug use: No ALLERGIES Allergen Reactions Acetaminophen Unknown Oxycodone Unknown Percocet [Oxycodone* Itching Review of Systems: Cardiopulmonary: denies chest pain, palpitations Respiratory: denies shortness of breath GI/: denies recent nausea, vomiting, diarrhea, constipation, incontinence Musculoskeletal: denies weakness, + joint ache/pain Back/spine: denies low back, mid back, or + cervical pains (intermittent) Neuro: denies tremors, loss of feeling, dizziness, seizure, blackout, + paresthesia (rare), facial paresthesia, facial weakness, difficulty in speech, slurring of words, dysarthria, dysphagia, memory loss, + headache, vision changes, loss of hearing Physical Exam: 11/13/21 0802 BP: 118/68 Pulse: 80 Resp: 18 Temp: 36.7 C (98 F) SpO2: 100% Weight: 87.1 kg (192 lb) Patient is alert and in no distress. Dress is appropriate. Mood is appropriate Breathing appears regular and unstressed Neurologic examination: Cognitively intact. No deficits. No formal MMSE performed. CN: Pupils equal and reactive to light, extraocular movements intact with no nystagmus, face is symmetric with no facial droop, facial sensation intact bilaterally to light touch. V1-3, hearing intact bilaterally, symmetric evaluation of the soft palate, tongue is midline with no deviation, shoulder shrug is symmetric. Motor exam shows 5/5 strength symmetric through the upper and lower extremities in all groups tested. Sensory intact to light touch in all extremities. Vibratory sensation is intact and symmetric all extremities. Deep tendon reflexes are symmetric at the biceps, brachioradialis, triceps, patella, and achilles bilaterally. Coordination: No dysmetria on finger to nose. No tremors noted. No drift seen. Gait normal in stance and pattern. Labs/studies: Previously Reviewed: Component Latest Ref Rng & Units 03/20/2021 Iron 41 - 186 ug/dL 53 TIBC 232 - 386 ug/dL 258 Transferrin Saturation 15 - 57 % 21 Vitamin D 25 Hydroxy 31.0 - 80.0 ng/mL 29.0 (L) TSH 0.270 - 4.200 uU/mL 0.917 Vitamin B12 232 - 1,245 pg/mL 521 Vitamin B6, Plasma 20.0 - 125.0 nmol/L 38.6 Component Latest Ref Rng & Units 09/19/2020 TSH 0.270 - 4.200 uU/mL 0.876 Free T4 0.9 - 1.7 ng/dL 1.0 Vitamin B12 232 - 1,245 pg/mL 536 Vitamin D 25 Hydroxy 31.0 - 80.0 ng/mL 23.6 (L) Vitamin B6, Plasma 20.0 - 125.0 nmol/L 24.2 MMA 79 - 376 nmol/L 190 MRI Report MRI BRAIN WO/W IVCON Exam End: 09/19/2020 3:35 PM (Final result) Narrative: * * *Final Report* * * DATE OF EXAM: Sep 19 2020 3:35PM [facility] 0295 - MRI BRAIN WO/W IVCON / PROCEDURE REASON: multiple diagnoses * * * * Physician Interpretation * * * * EXAMINATION: MRI BRAIN WO/W IVCON CLINICAL HISTORY: Chronic mixed headache syndrome. Right facial numbness and paresthesias. TECHNIQUE: Intracranial mass protocol with and without gadolinium with supplemental high-resolution coronal and axial gadolinium-enhanced T1 images of the upper brainstem. MQ: MRBWOW_2 Contrast: 18 mL Dotarem intravenous COMPARISON: None. RESULT: Acute Change: There is no evidence of restricted diffusion to suggest an acute infarct. Hemorrhage: No clear evidence of prior parenchymal hemorrhage within the constraints of acquisition. Mass Lesion/ Mass Effect: No evidence of a soft tissue mass in the prepontine or CP angle cisterns. No abnormal enhancement is noted otherwise along the course of the cisternal segments of the cranial nerves. No abnormal leptomeningeal enhancement is noted in the basilar cisterns. No abnormal parenchymal or leptomeningeal enhancement is appreciated otherwise following gadolinium administration. No significant mass effect. Chronic Change: The white matter is within normal limits of signal intensity for age. Specifically, no evidence of intracranial demyelinating disease by MRI. Parenchyma: No significant volume loss for age. The brain parenchyma is otherwise within normal limits of signal intensity and morphology. Ventricles: Normal caliber and morphology. Skull Base: Hypothalamic and pituitary region are normal. Craniocervical junction is normal. No significant marrow replacement process in the skull base.. Vasculature: A normal flow void is noted in the major dural venous sinuses suggesting patency by spin echo criteria. Other: The visualized paranasal sinuses and mastoid air cells are clear. The orbits and extracranial soft tissues are unremarkable. Impression: IMPRESSION: Normal study. Scalp Treatment Specialist: SOY Transcribe Date/Time: Sep 19 2020 3:35P Dictated by : KENRICK WILKERSON MD This examination was interpreted and the report reviewed and electronically signed by: KENRICK WILKERSON MD on Sep 19 2020 3:42PM EST Complete Results Assessment/Plan: G43.809 Other migraine without status migrainosus, not intractable (primary encounter diagnosis) R20.0, R20.2 Numbness and tingling of right face R29.810 Facial weakness Comment: Patient previously seen for headaches associated with R facial weakness and paresthesias. Previous MRI brain WO/W unremarkable for etiology of sx. At time of last appointment she reported increase in frequency of headaches and was having four per month. Topamax was increased to 125mg QHS with some improvement in symptoms. However, she reports she did run out of 25mg tablets in interim. Headaches have worsened over the past two weeks at which time she experienced one migraine with associated bilateral forehead numbness. Of note, she also reports that she experienced a kidney stone in September. On further discussion, she has had additional kidney stones while on Topamax and after reviewing SE of medication it was decided to titrate down and DC the medication. Discussed alternative medication options such as propanolol, gabapentin, or Keppra. As she is also reporting hot flashes at night and possible menopausal symptoms, will begin gabapentin 300mg BID (while simultaneously weaning down Topamax by 25mg weekly). She may continue to use prn OTC abortive medications for headache relief. R53.83 Other fatigue G47.33 TIM (obstructive sleep apnea) Comment: Hx of mild TIM after sleep study completed in first half of 2020. She was started on PAP therapy but has since discontinued use as symptoms were mild. Today she reports increased fatigue, worsening of headaches most notable overnight and in the morning upon waking, snoring, and possible start of menopause. As untreated TIM may lead to worsening of headaches as well as fatigue, discussed restarting PAP and she is agreeable. Will restart at previous settings and obtain download in one month. Kae Alexander APRN.MAXIMINO I spent a total of 50 minutes on the date of the service which included preparing to see the patient, [id number] patient care, completing clinical documentation, obtaining and/or reviewing separately obtained history, performing a medically appropriate examination, counseling and educating the patient/family/caregiver, and ordering medications, tests, or procedures. documented in this encounter [facility] 09-30-2021 Miscellaneous Notes RX INSTRUCTIONS: Pharmacy initiated this request. No need to notify patient. Last OV: 07/24/21 with KD Last refill: 06/16/21 With 90 and 0 refills Follow up: 11/13/21- 4 month f/u with KD Claire Yoon MA Assessment/Plan: G43.809 Other migraine without status migrainosus, not intractable (primary encounter diagnosis) R20.0, R20.2 Numbness and tingling of right face R29.810 Facial weakness Comment: Patient previously seen for headaches associated with R facial weakness and paresthesias. Negative workup completed in the past at [facility]. MRI brain WO/W unremarkable and without findings of acute infarct, hemorrhage, mass, demyelinating disease. Since time of previous appointment she reports migraines have increased in frequency and has recently had four per month. Also having minor headaches in between. No increase or return of associated neurological deficits. She is currently taking Topamax 100mg with no SE. Discussed options today to further treat migraines including increasing Topamax dose verses addition of alternative medication such as propanolol. Reviewed SE of each and at this time she would like to trial increase in Topamax dose. Will increase slowly to 125mg QHS and if no improvement after two weeks can further increase to 150mg QHS. If no improvement in sx or SE occur she will contact the office at which time propanolol can be initiated. R53.83 Other fatigue Comment: Pt still noting increased fatigue. Hx of COVID x2 since December of last year which was felt to be contributing to sx. Previously underwent sleep study in 07/29. Though of note, hx of TIM with use of PAP. Blood work completed since time of previous appointment and unremarkable with exception of persistently low vitamin D. Will have patient restart supplement after visit today. Recommend continuing to work on sleep schedule and getting adequate restful sleep. Kae Alexander APRN.TAKE UP SUPERVISOR documented in this encounter [facility] 06-16-2021 Miscellaneous Notes [facility] 03/20/2021 NOV 07/24/2021 Pharmacy electronically sent a request for the following prescription(s) Pending Prescriptions Disp Refills TOPIRAMATE 100 MG TABLET 90 tablet 0 Sig: TAKE 1 TABLET BY MOUTH EVERYDAY AT BEDTIME CAYETANO: Yes Patient aware RX will be sent to pharmacy. No need to notify patient. Please review. Claire Reynolds MA documented in this encounter [facility] 12-16-2020 History of Presen t illness Narrative Patient discharged from [facility]. AVS was printed and reviewed with patient with understanding. Patient was D/C'd from unit by unit staff. Tolerates infusion well, no signs of reaction, resting quietly in recliner. Patient is admitted to the [facility] for infusion of monoclonal antibody. Patient placed in room 2507 . Specialized isolation procedures in place. Patient is alert and oriented. Will obtain VS, place IV, and release Therapy Plan. Medication Fact Sheet given to patient prior to infusion. Special isolation precautions are in place with signage outside this patient's room. This school childcare attendant performs hand hygiene and enters the patient room wearing: gloves an appropriately fitting (N-95, PAPR, Aura) mask face shield protective gown to provide care. See documentation for the care provided. documented in this encounter [facility] 12-16-2020 Instructions Bety Penny RN - 12/16/2020 2:26 PM EST Instructed if any questions, concerns, or worsening symptoms within the next 7 days, please call primary care provider. For immediate emergencies, please go to the nearest Emergency Room or call 911. documented in this encounter [facility] Other migraine without status migrainosus, not intractable- Primary Numbness and tingling of right face Disturbance of skin sensation Facial weakness Other fatigue TIM (obstructive sleep apnea) Obstructive sleep apnea (adult) (pediatric) [facility] Diagnosis Other migraine without status migrainosus, not intractable- Primary Numbness and tingling of right face Disturbance of skin sensation Facial weakness Other fatigue TIM (obstructive sleep apnea) Obstructive sleep apnea (adult) (pediatric) [facility] Diagnosis Hyperopia, bilateral- Primary Regular astigmatism, bilateral Presbyopia Glaucoma suspect of both eyes Preglaucoma, unspecified [facility] Diagnosis Other migraine without status migrainosus, not intractable- Primary Numbness and tingling of right face Disturbance of skin sensation Facial weakness Other fatigue TIM (obstructive sleep apnea) Obstructive sleep apnea (adult) (pediatric) [facility] Diagnosis Other migraine without status migrainosus, not intractable Numbness and tingling of right face Disturbance of skin sensation [facility] Diagnosis Migraine without aura and without status migrainosus, not intractable- Primary Migraine without aura, without mention of intractable migraine without mention of status migrainosus Numbness and tingling of right face Disturbance of skin sensation Facial weakness documented in this encounter [facility] Summary Purpose Family History No Family History Records FoundNo Family History Records FoundNo Family History Records FoundNo Family History Records FoundNo Family History Records FoundNo Family History Records FoundNo Family History Records FoundNo Family History Records FoundNo Family History Records FoundNo Family History Records FoundNo Family History Records FoundNo Family History Records Found Advance Directives No Advanced Directives Records FoundDocuments on File Type Date Recorded Patient Information Systems Project Manager Expl anation Advance Directives and Livin g Will 03/11/2020 8:10 AM Documents on File Type Date Recorded Patient Information Systems Project Manager Expl anation Advance Directives and Livin g Will 09/01/2018 5:38 PM Documents on File Type Date Recorded Patient Information Systems Project Manager Expl anation Advance Directives and Livin g Will 12/15/2020 4:36 PM Reason for Referral Status Reason Specialty Diagnoses / Procedures Referred By Contact Referred To Contact Closed Sports Medicine Diagnoses Right medial knee pain Crystal Benítez, TAKE UP SUPERVISOR [address] Enrrique Loyd MD [address] [place] [address] Specialty Diagnoses / Procedures Referred By Contac t Referred To Contact Dentistry Diagnoses TIM (obstructive sleep apnea) Procedures CONSULT TO DENTISTRY OFFICE/OUTPATIENT [facility] 60-74 MINUTES Kae Alexander APRN.TAKE UP SUPERVISOR [address] [place] [address] Referral ID Status Reason Start Date Expiration Date Visits Requested Visits Authorized [id number] Pending Review PCP Requested Referral 03/19/2022 03/19/2023 1 1 Referral ID Status Reason Start Date Expiration Date Visits Requested Visits Authorized [id number] Pending Review PCP Requested Referral 3 11/19/2023 1 1 Specialty Diagnoses / Procedures Referred By Agata t Referred To Contact MR IMAGING Diagnoses Migraine without aura and without status migrainosus, not intractable Numbness and tingling of right face Facial weakness Procedures MRI BRAIN WO/W IVCON MRI BRAIN BRAIN STEM W/O W/CONTRAST MATERIAL Kae Alexander, IFEANYI.TAKE UP SUPERVISOR [address] [place] [address] [place] [address] Referral ID Status Reason Start Date Expiration Date Visits Requested Visits Authorized [id number] Pending Review Auto-Generat ed Referral 3 01/24/2024 1 1 History of Present Illness * Enrrique Loyd MD - 11/05/2016 4:56 PM EDT Fransico is a 41-year-old, white female whose chief complaint is right knee pain. She has not had a fall or change in activities. She has had symptoms a month and it had been sore, but now it does nothurt her very much at all. She had trouble as she walks, bending, stairs and kneeling. She has had no swelling, no injury, had been exercising more head and had more weight, but has lost some. Now her only previous injury have been a fall on ice with an abrasion anterior to the knee a year ago. It was numb for a while and that has gotten better. PAST HISTORY ALLERGIES Percocet. MEDICATIONS Wellbutrin, multivitamins. PAST SURGICAL HISTORY She has had previous , hysterectomy, ovarian cyst and D and C. PAST MEDICAL HISTORY She has had history of depression, bronchitis, pneumonia, kidney stones, but no chest pain or shortness of breath, PND or orthopnea, bowel or bladder symptoms. SOCIAL HISTORY She drinks occasionally, does not smoke. PHYSICAL EXAM Neuro: Reveals a pleasant, white female in no acute distress. Her general exam is unremarkable. Herright knee, she has full range of motion. There is no effusion. No mediolateral instability, Freddy sign, pivot shift, drawer sign, Polly sign. I can find no areas of tenderness. She has a littlehealed abrasion on the anterior aspect of her right knee. Lower back is normal and right hip has full motion. X-RAYS Right knee, 4 views, reveals no abnormalities. These were reviewed from [facility]. IMPRESSION Right knee pain that is resolved. I have no diagnosis other than knee pain. I will see her back on an as-needed return basis. in this encounter Assessments Diagnosis Right medial knee pain Diagnosis Functional neurological symptom disorder with mixed symptoms- Primary Elevated blood sugar Other abnormal glucose Elevated blood pressure reading Elevated blood pressure reading without diagnosis of hypertension Diagnosis Chest wall pain- Primary Painful respiration Abdominal pain, unspecified abdominal location Nausea Nausea alone Discharge Instructions * Instructions* Sophie Card MD - 03/11/[address] Ruby neurologist for further follow-up and work-up. Follow-up with your primary doctor for mild elevation in blood sugar and elevated blood pressure. Stay on a low-sodium diet and avoid caffeine this will help your blood pressure. Avoid any manipulation of the neck. If worsening symptoms come back immediately to the ER for further evaluation. There is a website you can visit call [email or web address] that can give you more information on Functional neurologic disorder * Attachments The following attachments cannot be sent through Care Everywhere. * Numbness and Tingling (Maltese) * Migraine Headache (Maltese) * Blood Pressure: Elevated (Maltese) documented in this encounter* Instructions* Hubert Baazn MD - 09/01/2018 Patient to follow up with PCP in 1-2 days or return here at any time for new, worse or persistent symptoms. Patient to read and follow all pharmacy instructions for medication, if any questions ask the pharmacist, their PCP or return here If prescribed opiate pain meds please try medications with fewer side effects and less addictive properties such as Tylenol or Ibuprofen do not take Tylenol with the opiate pain meds * Attachments The following attachments cannot be sent through Care Everywhere. * Nausea and Vomiting (Maltese) * Chest Pain: Musculoskeletal (Maltese) * Abdominal Pain (Maltese) documented in this encounter Medications Administered Section Inactive Administered Medications - up to 3 most recent administrations Medication Order MAR Action Action Date Dose Rate Site tropicamide 1 % 1 Drop (MYDRIACYL) 1 Drop, BOTH EYES, ONCE, 1 dose, On 09/21/22 at 0900, FOR THE EYE Given 09/21/2022 9:00 AM EDT 1 Drop Additional Source Comments INFORMATION SOURCE (unrecogn ized section and content) DATE CREATED AUTHOR AUTHOR'S ORGANIZ ATION 11/09/2018 [facility] DATE CREATED AUTHOR AUTHOR'S ORGANIZ ATION 12/14/2018 [facility] DATE CREATED AUTHOR AUTHOR'S ORGANIZ ATION 12/17/2019 [facility] DATE CREATED AUTHOR AUTHOR'S ORGANIZ ATION 03/11/2020 [facility] DATE CREATED AUTHOR AUTHOR'S ORGANIZ ATION 04/03/2020 [facility] DATE CREATED AUTHOR AUTHOR'S ORGANIZ ATION 12/17/[address] [facility] DATE CREATED AUTHOR AUTHOR'S ORGANIZ ATION 04/17/2021 [facility] DATE CREATED AUTHOR AUTHOR'S ORGANIZ ATION 04/18/2021 [facility] DATE CREATED AUTHOR AUTHOR'S ORGANIZ ATION 10/01/2021 [facility] DATE CREATED AUTHOR AUTHOR'S ORGANIZ ATION 12/20/2022 [facility] DATE CREATED AUTHOR AUTHOR'S ORGANIZ ATION 03/15/2023 [facility] Reason for Visit (unrecogniz ed section and content) Status Reason Specialty Diagnoses / Procedures Referred By Contact Referred To Contact Closed Sports Medicine Diagnoses Right medial knee pain Crystal Benítez, TAKE UP SUPERVISOR [address] Enrrique Loyd MD [address] [place] [address] Reason Comments Facial Droop Numbness Reason Comments Chest Pain Reason Comments Nausea COVID Specialty Diagnoses / Procedures Referred By Contac t Referred To Contact Infusion Therapy Diagnoses Sophie Vazquez MD [address] [place] [address] Specialty Infusn [address] [facility] [place] [address] Referral ID Status Reason Start Date Expiration Date V isits Requested Visits Authorized [id number] Closed Specialty Services Required/Nasreen ent's Best Interest 12/15/2020 12/15/2021 1 1 Reason Comments Refill Request Reason Comments Established Patient Follow up Migraines Reason Comments Follow Up Reason Comments Yearly Exam Reason Comments Headaches Reason Comments Med Change Request Reason Onset Date Comments Refill Request 12/24/2022 Obdulia Silva RN - 03/11/2020 8:18 AM Obdulia Landin RN - 03/11/2020 8:04 AM Sophie Sosa MD - 03/11/2020 8:03 AM Obdulia Landin RN - 03/11/2020 8:00 AM EST ED Notes (unrecognized secti on and content) Dr. Friedman on stroke camera Pt to CT Associated Order(s): EKG 12-lead [place] ED Physician Note: NAME: Fransico Dickey 44 y.o. CSN: [id number] PCP: Crystal Benítez CNP ED Course / Medical Decision Making: Stroke network was called at 8:09 AM. NIH is a 2. Numbness started last nigh 9 pm with slight dizziness. Today 6 am facial droop right started with numbness on right side more pronounced. Accu-Chek was 103. Dr. Friedman from stroke network evaluated patient felt this was a functional neurologic disorder. He did not feel further inpatient work up indicated. She apparently hade a full work up to [facility]. This included MRI of the brain, CTA of head and neck, and ultrasound. He felt that she should follow-up with the neurologist at [place] Dr. Ruby as a outpatient. I did give her his office number to make an appointment. He wanted her to avoid any manipulation of the neck. He felt most likely this was a functional neurologic disorder but other possibilities are atypical migraine and MS. patient knows she needs to follow-up with neurology for a further work-up and assessment. If worsening symptoms come back immediately to the ER for further evaluation. Blood pressure is elevated in the ER she is to check her blood pressure regularly at home. She is to stay on a low-sodium diet and avoid caffeine. Follow-up with her primary doctor to have her blood pressure rechecked. EKG was reviewed by me there is no sign of arrhythmia or ischemia. Patient does not have any chest pain or shortness of breath. Blood sugar is also mildly elevated she is to follow-up with her primary doctor to have her blood sugar reevaluated. She understands discharge instructions and is comfortable going home. MDM Number of Diagnoses or Management Options Elevated blood pressure reading: new, needed workup Elevated blood sugar: new, needed workup Functional neurological symptom disorder with mixed symptoms: new, needed workup Amount and/or Complexity of Data Reviewed Clinical lab tests: ordered Discussion of test results with the performing providers: yes Decide to obtain previous medical records or to obtain history from someone other than the patient: yes Review and summarize past medical records: yes Discuss the patient with other providers: yes Independent visualization of images, tracings, or specimens: yes Risk of Complications, Morbidity, and/or Mortality Presenting problems: high Diagnostic procedures: high Management options: high Patient Progress Patient progress: stable Clinical Impression: 1. Functional neurological symptom disorder with mixed symptoms 2. Elevated blood sugar 3. Elevated blood pressure reading Disposition: Patient is being discharged to home History: Chief Complaint: Facial Droop and Numbness HPI: The history was obtained from the patient and spouse. She is a 44 y.o. female who presents with a chief complaint of Facial Droop and Numbness. HPI Right facial droop started at 6 am this morning. Similar symptoms 3 weeks ago and was Admitted to [facility]. She was diagnosed with a TIA and started on statin and aspirin therapy. Patient noticed last night she felt the tingling and heaviness over both sides however more prominent on the right side this was around 9 PM. She took a Benadryl and this made her go to sleep. Then around 6 AM today she noticed the facial droop and tingling both sides of the face but more prominent on the right side of the face arm and leg. She denies any slurred speech or problems swallowing. She has slight dizziness but no problems with balance. She denies any visual symptoms. She did take a baby aspirin around 7 AM this morning. She denies any upper respiratory symptoms. She has no problems closing right eye. She does not feel the right eye is watery. She said when she was admitted 3 weeks ago they had ruled out Rolle's palsy. After being admitted her symptoms went away and they felt that this was a TIA. Also admits to a slight headache behind her right eye. She does have a history of migraine headaches which have been less intense since she changed jobs. Patient states her mother had a stroke in her mid 40s. PMHx: Past Medical History: Diagnosis Date Abdominal pain Bronchitis Depression Kidney stone Pneumonia PMSx: Past Surgical History: Procedure Laterality Date SECTION, CLASSIC HYSTERECTOMY OVARIAN CYST REMOVAL FAM. Hx: No family history on file. SOC. Hx: Social History Socioeconomic History Marital status: Spouse name: Not on file Number of children: Not on file Years of education: Not on file Highest education level: Not on file Occupational History Not on file Social Needs Financial resource strain: Not on file Food insecurity Worry: Not on file Inability: Not on file Transportation needs Medical: Not on file Non-medical: Not on file Tobacco Use Smoking status: Never Smoker Smokeless tobacco: Never Used Substance and Sexual Activity Alcohol use: Yes Drug use: Not on file Sexual activity: Not on file Lifestyle Physical activity Days per week: Not on file Minutes per session: Not on file Stress: Not on file Relationships Social connections Talks on phone: Not on file Gets together: Not on file Attends amish service: Not on file Active member of club or organization: Not on file Attends meetings of clubs or organizations: Not on file Relationship status: Not on file Other Topics Concern Not on file Social History Narrative Not on file MEDs: Previous Medications Medication Sig lisinopriL (PRINIVIL,ZESTRIL) 5 MG tablet atorvastatin (LIPITOR) 80 MG tablet buPROPion (WELLBUTRIN XL) 150 MG 24 hr tablet Take by mouth. cholecalciferol, vitamin D3, 5,000 unit Tab tablet Take by mouth. cyanocobalamin (B-12) 1000 MCG tablet Take by mouth. naproxen (NAPROSYN) 500 MG tablet Take 1 (one) tablet (500 mg total) by mouth 2 (two) times a day as needed . ondansetron (ZOFRAN-ODT) 4 MG disintegrating tablet Dissolve 1 (one) tablet (4 mg total) on top of tongue every 8 (eight) hours as needed for nausea . ALL: Allergies Allergen Reactions Oxycodone-Acetaminophen Itching ROS: Review of Systems Constitutional: Negative. HENT: Negative. Eyes: Negative. Respiratory: Negative. Cardiovascular: Negative. Gastrointestinal: Negative. Endocrine: Negative. Genitourinary: Negative. Musculoskeletal: Negative. Skin: Negative. Neurological: Positive for dizziness, facial asymmetry, numbness and headaches. Negative for tremors, seizures, syncope, speech difficulty, weakness and light-headedness. All other systems reviewed and are negative. Positives and pertinent negatives as per HPI. All other systems were reviewed and are negative. Physical Exam: Patient Vitals for the past 24 hrs: BP Temp Pulse Resp SpO2 Height Weight 03/11/20 0900 129/85 82 18 96 % 03/11/20 0846 (!) 150/105 03/11/20 0845 (!) 153/95 87 (!) 19 98 % 03/11/20 0840 78 17 03/11/20 0835 79 18 03/11/20 0832 (!) 142/83 03/11/20 0830 (!) 142/83 81 17 99 % 03/11/20 0823 90 16 03/11/20 0820 88 (!) 19 03/11/20 0815 123/75 85 18 98 % 03/11/20 0810 78 (!) 19 03/11/20 0809 134/79 03/11/20 0805 85 13 03/11/20 0800 78 14 03/11/20 0750 135/82 98.6 F (37 C) 86 14 97 % 5' 1 86.2 kg (190 lb) Physical Exam Vitals signs and nursing note reviewed. Constitutional: General: She is not in acute distress. Appearance: Normal appearance. She is not ill-appearing, toxic-appearing or diaphoretic. HENT: Head: Normocephalic. Right Ear: External ear normal. Left Ear: External ear normal. Nose: Nose normal. Mouth/Throat: Mouth: Mucous membranes are moist. Eyes: Extraocular Movements: Extraocular movements intact. Pupils: Pupils are equal, round, and reactive to light. Neck: Musculoskeletal: Neck supple. Cardiovascular: Rate and Rhythm: Normal rate and regular rhythm. Pulses: Normal pulses. Heart sounds: Normal heart sounds. No murmur. No friction rub. No gallop. Pulmonary: Effort: Pulmonary effort is normal. No respiratory distress. Breath sounds: Normal breath sounds. No stridor. No wheezing, rhonchi or rales. Chest: Chest wall: No tenderness. Abdominal: General: Abdomen is flat. There is no distension. Palpations: Abdomen is soft. There is no mass. Tenderness: There is no abdominal tenderness. There is no right CVA tenderness, left CVA tenderness, guarding or rebound. Hernia: No hernia is present. Musculoskeletal: General: No swelling. Skin: Findings: No rash. Neurological: General: No focal deficit present. Mental Status: She is alert and oriented to person, place, and time. Sensory: Sensory deficit present. Motor: No weakness. Comments: Right sided facial droop NIH Scale: LOC: 0 - alert LOC Questions: 0 - answers both correctly LOC Commands: 0 - performs both correctly Best gaze: 0 - normal Vision: 0 - no visual loss Facial Palsy: 1 - minor Left arm: 0 - no drift Right arm; 0 - no drift Left le - no drift Right le - no drift Limb ataxia: 0 - absent Sensation: 1 - mild to moderate loss Best language: 0 - no aphasia Dysarthria: 0 - normal articulation Extinction and inattention: 0 - no neglect Stroke Scale: 2 Laboratory & Radiological Imaging (if done): Labs Reviewed POC GLUCOSE - Abnormal; Notable for the following components: Result Value Glucose 102 (*) All other components within normal limits POC GLUCOSE - RALS - Abnormal; Notable for the following components: Glucose 102 (*) All other components within normal limits POC BASIC METABOLIC PANEL - RALS - Abnormal; Notable for the following components: Glucose 103 (*) All other components within normal limits POC PT-INR - RALS - Normal POC CBC AND DIFFERENTIAL POC BASIC METABOLIC PANEL POC PT-INR XR Chest 1 View Non-public Result Lungs are clear. No acute findings. Workstation ID: [id number] CT Head Without Contrast (Stroke) Preliminary Result No CT evidence of an acute territorial infarct or hemorrhage. MRI is more sensitive for an acute infarction if this is of persistent clinical concern. ART/ges Workstation ID: [id number] Procedures: EKG 12-lead Date/Time: 03/11/2020 8:44 AM Performed by: Sophie Card MD Authorized by: Sophie Card MD Interpreted by ED attending physician Rhythm: sinus rhythm BPM: 81 Conduction: conduction normal ST Segments: ST segments normal T Waves: T waves normal normal MI interval Clinical impression: normal ECG Comments: No signs of acute ischemia The patient has been informed that they may have pre-hypertension or hypertension based on a blood pressure reading in the Emergency Department. I recommend that the patient call the primary care provider listed on their discharge instructions or a physician of their choice as soon as possible to arrange follow-up in the next 4 weeks for further evaluation of possible pre-hypertension or hypertension. . Sophie Card MD ED Physician [place] [facility] (Please note that portions of this note have been completed with a voice recognition software. Efforts were made to correct any errors, but occasionally words are mis-transcribed.) Sophie Card MD 03/11/20 09 Stroke network called Pt arrives from home with c/o right facial droop, numbness and tingling to bilat arms arms. Pt reports tingling started last evening and facial droop developed this AM. Pt relates she had similar symptoms 3 weeks ago. Pt alert & oriented x4 and appears in no distress. Pt respirations equal and unlabored. Pt able to talk in clear and complete sentences. LKW 03/10 @ 2100 documented in this encounter Discharged. Voices understanding of instructions. Repeat lab drawn. Reassessment completed Report given to niru FOSTER. Bedside report received from Yaron FOSTER. IV NS bolus infusing without difficulty R hand. CP 6 . HPI Chief Complaint abdominal pain chest wall pain Patient Stated Complaint Patient is a 43-year-old white female comes in with history of diverticulitis and left lower quadrant abdominal pain states is been going on for several days it feels exactly like previous diverticulitis patient also states 2 weeks of constant chest pain states has been constant for 2 weeks it is never gone away patient on exam does have left lateral chest wall pain tenderness palpation most notable with movement of the ribs and with pulling arm across chest patient denies any fever chills sweats cough sputum or shortness of breath denies any leg pain has no cardiac history no dysuria or increased urinary frequency all other symptoms reviewed are negative Allergy List : Reviewed-and agree with nurses notes Home Medication List : Reviewed-and agree with nurses notes Medical and Surgical History Active Problem List: Reviewed-and agree with nurses notes Family History Reviewed- see -nurses notes Vital Signs and Body Measurements Reviewed- see -nurses notes ROS At Least 10 Organ Systems Reviewed and Negative Except as Indicated in HPI Physical Examination: All findings normal unless otherwise noted Constitutional Alert & orientated x 3, No Acute Distress Well Nourished Head and Face :Normocephalic and Atraumatic Eye Extraocular Movement Intact Pupils Equally Round Reactive to light Ear Nose Throat Mucous Membranes Moist No Injury or Deformity Oropharynx Clear Cardiovascular Capillary Refill Less than 2 Seconds No Peripheral Edema Normal S1, S2 Pulses Normal Regular Rate and Rhythm Respiratory Clear to Auscultation Bilaterally Normal Rate and Effort no Respiratory Distress or Stridor Gastrointestinal Abdomen Soft Bowel Sounds Present Not Tender Distended Generalized Tenderness. No Guarding Rebound Rigid Genitourinary No Lesion Normal External Genitalia Musculoskeletal Distal Pulses Normal No Injury or Deformity No Calf Tendernes, no Paraspinous Tenderness or spinal ttp Cervical Lumbar Thoracic except positive lateral chest wall tenderness to palpation with movement of ribs and pulling arm across chest Neurologic 5/5 Strength throughout No Focal Deficits Sensation Intact or Slurred Speech Skin Dry No Lesion No Rash Normal Color Warm no Cyanosis Diaphoretic Lymph No Lymphadenopathy or Lymphadenopathy Lymphedema Psychiatric Appropriate Affect Cooperative not Depressed Manic or having Suicidal Thoughts Laboratory Results-reviewed see results Data Reviewed EKG interpretation note sinus tach regular rhythm heart rate 101 no STEMI Medical Decision Making and Diagnosis Medical Decision Making Patient seen and evaluated labs and imaging were reviewed imaging reviewed by myself and radiologist patient treated symptomatically with improvement patient and family had all questions addressed and answered completely asymptomatic with the exception of reproducible chest wall pain patient to be discharged PCP follow-up 1 to 2 days instructed return here anytime for new worse or persistent symptoms patient family happy and thankful for care and stated understanding Differential Diagnosis Considered Final Diagnostic Impression #1 abdominal pain #2 chest wall pain Disposition Discharge Supervisory Note Billing Evaluation and Management Total Critical Care Time minutes Hubert Bazan MD 09/01/181909 Hubert Bazan MD 09/01/181911 Hubert Bazan MD 09/01/182008 Pt returns from ct. Pt reports CP x 1 week, seen at Urgent Care today and was told to come to ER. Pt reports increased SOB and feeling tired. CP has been constant and moves around documented in this encounter Care Teams (unrecognized sec tion and content) Heating Technician Relationship Specialty Start Date End Date [address] [place] [address] PCP - General Family Practice 08/24/14 Heating Technician Relationship Specialty Start Date End Date Adam [address] [place] [address] PCP - General Family Practice 08/24/14 Heating Technician Relationship Specialty Start Date End Date Adam [address] [place] [address] PCP - General Family Practice 08/24/14 Heating Technician Relationship Specialty Start Date End Date Adam Chua [address] [place] [address] PCP - General Family Medicine 08/24/14 Heating Technician Relationship Specialty Start Date End Date Adam Chua [address] [place] [address] PCP - General Family Medicine 08/24/14 Heating Technician Relationship Specialty Start Date End Date Adam Chua [address] [place] [address] PCP - General Family Medicine 08/24/14 Heating Technician Relationship Specialty Start Date End Date Adam [address]ua [address] [place] [address] PCP - General Family Medicine 08/24/14 Heating Technician Relationship Specialty Start Date End Date Adam Chua CNP [address] [place] [address] PCP - General Family Medicine 08/24/14 Heating Technician Relationship Specialty Start Date End Date Adam Chua CNP [address] [place] [address] PCP - General Family Medicine 08/24/14 Heating Technician Relationship Specialty Start Date End Date Adam Chua CNP [address] [place] [address] PCP - General Family Medicine 08/24/14 Source Comments (unrecognize d section and content) In the event this informatio n is protected by the Federal Confidentiality of Alcohol and Drug Abuse Patient Records regulations: The Federal rules restrict any use of the information to criminally investigate or prosecute any alcohol or drug abuse patient.[facility] the event this information is protected by the Federal Confidentiality of Alcohol and Drug Abuse Patient Records regulations: The Federal rules restrict any use of the information to criminally investigate or prosecute any alcohol or drug abuse patient.[facility] the event this information is protected by the Federal Confidentiality of Alcohol and Drug Abuse Patient Records regulations: The Federal rules restrict any use of the information to criminally investigate or prosecute any alcohol or drug abuse patient.[facility] the event this information is protected by the Federal Confidentiality of Alcohol and Drug Abuse Patient Records regulations: The Federal rules restrict any use of the information to criminally investigate or prosecute any alcohol or drug abuse patient.[facility] the event this information is protected by the Federal Confidentiality of Alcohol and Drug Abuse Patient Records regulations: The Federal rules restrict any use of the information to criminally investigate or prosecute any alcohol or drug abuse patient.[facility] System[facility] the event this information is protected by the Federal Confidentiality of Alcohol and Drug Abuse Patient Records regulations: The Federal rules restrict any use of the information to criminally investigate or prosecute any alcohol or drug abuse patient.[facility] System[facility] the event this information is protected by the Federal Confidentiality of Alcohol and Drug Abuse Patient Records regulations: The Federal rules restrict any use of the information to criminally investigate or prosecute any alcohol or drug abuse patient.[facility] System[facility] the event this information is protected by the Federal Confidentiality of Alcohol and Drug Abuse Patient Records regulations: The Federal rules restrict any use of the information to criminally investigate or prosecute any alcohol or drug abuse patient.[facility] System[facility] the event this information is protected by the Federal Confidentiality of Alcohol and Drug Abuse Patient Records regulations: The Federal rules restrict any use of the information to criminally investigate or prosecute any alcohol or drug abuse patient.[facility] System[facility] the event this information is protected by the Federal Confidentiality of Alcohol and Drug Abuse Patient Records regulations: The Federal rules restrict any use of the information to criminally investigate or prosecute any alcohol or drug abuse patient.[facility] System[facility] the event this information is protected by the Federal Confidentiality of Alcohol and Drug Abuse Patient Records regulations: The Federal rules restrict any use of the information to criminally investigate or prosecute any alcohol or drug abuse patient.[facility] FOR RECORDS PERTAINING TO PATIENTS WHO ARE OR HAVE BEEN ENROLLED IN A CHEMICAL DEPENDENCY/SUBSTANCEABUSE PROGRAM, SOME INFORMATION MAY BE OMITTED. This clinical summary was aggregated from multiple sources. Caution should be exercised in using it in the provision of clinical care. This summary normalizes information from multiple sources, and as a consequence, information in this document may materially change the coding, format and clinical context of patient data. In addition, data may be omitted in some cases. CLINICAL DECISIONS SHOULD BE BASED ON THE PRIMARY CLINICAL RECORDS. [facility]. provides no warranty or guarantee of the accuracy or completeness of information in this document.
== END | disposition home or self-care (01) ==
PROVIDERS: PCP Nurse Practitioner Family; Referring Provider Nurse Practitioner Family; Visit Provider Nurse Practitioner Family
DX: Z12.31 Encounter for screening mammogram for malignant neoplasm of breast (principal)
CPT/HCPCS: 77063; 77067

== ENCOUNTER 2023-08-03 16:04 | Emergency (ER) | payer BC, SELFPAY ==
[2023-08-03 16:05] VITALS: BP 173/81; PULSE 92; RESP 18; TEMP 36.2; O2SAT 97; BMI 37.5
[2023-08-03 16:10] VITALS: BMI 37.1
[2023-08-03 16:16] VITALS: BP 142/83; PULSE 80; RESP 17; O2SAT 99
[2023-08-03 16:37] LABS: Bedside Glucose 129 mg/dL (74-106)
[2023-08-03 17:26] VITALS: BP 123/75; PULSE 81; RESP 17; O2SAT 95
--- NOTE | 2023-08-03 17:26 | EKG12_ITS ---
Test Reason : Blood Pressure : / mmHG Vent. Rate : 077 BPM Atrial Rate : 077 BPM P-R Int : 138 ms QRS Dur : 066 ms QT Int : 382 ms P-R-T Axes : 036 031 030 degrees QTc Int : 432 ms Normal sinus rhythm Normal ECG Confirmed by Steffen Henson ([id number]), makeup editor KAIT ELISE ([id number]) on 08/04/2023 9:20:01 AM Referred By: Confirmed By:Steffen Henson
--- NOTE | 2023-08-03 17:50 | RAD_ITS ---
STUDY: X-RAY CHEST REASON FOR EXAM: Female, 48 years old. Stroke TECHNIQUE: Single AP portable view of the chest. COMPARISON: February 19, 2020 FINDINGS: There are monitoring devices. The lungs are clear and expanded. There is no demonstrated pleural abnormality. Normal size heart. Normal mediastinum and toyin. Normal visualized pulmonary arteries. Normal visualized aortic arch and descending thoracic aorta. Normal visualized thoracic spine. Normal visualized ribs, clavicles, and shoulders. There is no demonstrated abnormality of the visualized soft tissue structures of the upper abdomen. RAD/Chest 1 View (Portable) IMPRESSION: Normal x-ray examination of the chest. Electronically Signed: Chucho Adorno MD at 18:42 EDT ,
[2023-08-03 17:54] LABS: Absolute Lymphocyte Count 1.69 X10^3/uL (0.83-4.51); Absolute Neutrophil Count 5.2 X10^3/uL (2.0-7.7); Basophil# 0.01 X10^3/uL; Basophil% 0.1 % (0-1); Eosinophil# 0.12 X10^3/uL; Eosinophils% 1.6 % (0-5); Hematocrit 40.6 % (37-47); Hemoglobin 13.6 g/dL (12.0-15.0); Lymphocyte # 1.69 X10^3/ul (0.83-4.51); Lymphocyte % 21.9 % (19-41); Mean Corp Hgb Conc 33.5 g/dL (32-36); Mean Corpuscular Volume 92.5 fL (81-99); Mean Platelet Vol. 11.8 fl (6.2-12.0); Monocyte# 0.66 X10^3/uL; Monocyte% 8.5 % (0-10); NRBC Flagged by Analyzer 0 % (0-5); Neutrophil # 5.23 X10^3/uL (2.7-7.7); Neutrophil % 67.6 % (47-70); Platelet Count 201 K/mm3 (150-450); RBC Distribution Width CV 12.1 % (11.6-14.6); RBC Distribution Width SD 41.3 fl (35.1-43.9); Red Blood Count 4.39 M/mm3 (4.2-5.4); White Blood Count 7.7 K/mm3 (4.4-11.0)
[2023-08-03 18:04] LABS: Anion Gap 7 (5-15); BUN 13 mg/dL (7-18); BUN/Creat Ratio 17.5 RATIO (10-20); Calcium,Total 8.8 mg/dL (8.5-10.1); Chloride 112 mmol/L (98-107); Creatinine, Serum 0.74 mg/dL (0.55-1.02); EST Glomerular Filtration Rate 88 mL/min (>60); Est Glom Filt Rate - Afr Amer 106 mL/min (>60); Estimated Creatinine Clearance 96.11 ml/min; Glucose 93 mg/dL (74-106); International Normalized Ratio 0.9; Partial Thromboplast Time 27.3 Seconds (24.1-36.2); Prothrombin Time (Protime)PT. 12.4 SECONDS (11.7-14.9); Sodium Level 140 mmol/L (136-145)
[2023-08-03] MEDS: Ketorolac 15 MG/ML Vial IV (18:10)
[2023-08-03] MEDS: 0.9% Normal Saline (1000mL) 1,000 ML 50 ML IV (18:10)
[2023-08-03] MEDS: DiphenhydrAMINE 50 MG/ML Syringe 25 MG IV (18:10)
[2023-08-03] MEDS: Metoclopramide 10 MG/2 ML Vial IV (18:10)
[2023-08-03 18:15] VITALS: BP 141/82; PULSE 69; RESP 20; O2SAT 97
[2023-08-03 18:16] LABS: Absolute Lymphocyte Count 1.86 X10^3/uL (0.83-4.51); Absolute Neutrophil Count 5.5 X10^3/uL (2.0-7.7); Basophil# 0.01 X10^3/uL; Basophil% 0.1 % (0-1); Eosinophil# 0.13 X10^3/uL; Eosinophils% 1.6 % (0-5); Hematocrit 39.4 % (37-47); Hemoglobin 13.1 g/dL (12.0-15.0); Lymphocyte # 1.86 X10^3/ul (0.83-4.51); Lymphocyte % 22.9 % (19-41); Mean Corp Hgb Conc 33.2 g/dL (32-36); Mean Corpuscular Hgb 30.5 pg (27.0-32.0); Mean Corpuscular Volume 91.8 fL (81-99); Mean Platelet Vol. 11.7 fl (6.2-12.0); Monocyte# 0.64 X10^3/uL; Monocyte% 7.9 % (0-10); NRBC Flagged by Analyzer 0 % (0-5); Neutrophil # 5.48 X10^3/uL (2.7-7.7); Neutrophil % 67.3 % (47-70); Platelet Count 202 K/mm3 (150-450); RBC Distribution Width CV 12.1 % (11.6-14.6); RBC Distribution Width SD 40.7 fl (35.1-43.9); Red Blood Count 4.29 M/mm3 (4.2-5.4); White Blood Count 8.1 K/mm3 (4.4-11.0)
[2023-08-03 20:00] VITALS: BP 122/66; PULSE 70; RESP 19; O2SAT 98
--- NOTE | 2023-08-03 20:25 | EDS_ITS ---
HPI History of Present Illness Chief Complaint: Neuro S/Sx Detail of Chief Complaint: Headache and neurosymptoms Informant: patient and spouse/S.O. Onset/Context/Timing Onset: Today and Hours Context: Sudden Onset Timing: Continuous and Waxes and wanes Quality: Throbbing headache and asymmetric face Location: Left side with ptosis on the right and facial droop on the left Current Severity: Moderate Maximum Severity: Severe Worsened by: Light sensitivity Relieved by: Nothing Associated Symptoms Associated Symptoms: Nausea Narrative Narrative: Patient is a 48-year-old woman. She has had prior imaging of her brain i.e. CAT scan and MRI. She was under the care of Dr. Culp. Apparently she has history of migraines. She is on medicine for her migraines. She had similar episode several years ago. It was thought to be due to migraines as well as seizures at night. She apparently did have an EEG in the past. She is uncertain of the results. Patient denies fever, chills night sweats. Patient does report photophobia. Patient denies double vision, partial loss of vision but does endorse bilateral blurred vision. She denies sonophobia. She denies neck pain or neck stiffness. She denies paresthesia, anesthesia or motor weakness upper or lower extremity. She sent pictures of her facial asymmetry to her . She had ptosis of the right upper eyelid and facial droop on the left. Prior similar symptoms: Yes Recent Illness/Hospitalization: No PFSH PFS Medical History delivery delivered Post hysterectomy menopause Medical History no medical history Home Medications ?Medication ?Instructions ?Recorded ?Last Taken ?Type sertraline 50 mg tablet 1 tab PO QHS 02/19/20 02/18/20 History vitamin B complex 1 ea PO DAILY 02/19/20 02/18/20 History vitamin D2 20 mcg-vitamin K1 120 drp PO 08/03/23 Unknown History mcg/4 drops oral Allergy/AdvReac Type Severity Reaction Status Date / Time acetaminophen Allergy Unknown Verified 08/03/23 16:15 oxycodone Allergy Unknown Verified 08/03/23 16:15 Family History (Updated 08/03/23 @ 16:12 by Monse Hutson) Mother Hypotension CVA (cerebral vascular accident) Diabetes Father Diabetes Social History household members: spouse current occupational status: employed Smoking Status: Never smoker ROS ROS ED Constitutional Constitutional ED: Denies chills, fever(s), subjective, sweats or weight loss Eyes Eyes: Reports blurry vision bilateral; Denies change in vision or diplopia ENT ENT ED: Denies ear pain, rhinorrhea or sore throat Cardiovascular Cardiovascular: Denies chest pain or palpitations Respiratory/Chest Respiratory/Chest: Denies cough, dyspnea or dyspnea on exertion Gastrointestinal Gastrointestinal: Denies abdominal pain, diarrhea or vomiting Genitourinary Genitourinary ED: Denies dysuria, hematuria or urinary frequency Musculoskeletal Musculoskeletal: Denies arthralgias, back pain or neck pain Neurologic Neurologic: Reports headache(s) and other Details: Further detailed HPI narrative ; Denies paresthesias or weakness Psychiatric Psychiatric: Denies anxiety or depression Hematologic/Lymphatic Hematologic/Lymphatic: Reports systems reviewed and no addt'l complaints, except as documented EXAM Physical Exam Const Vital Signs: 08/03/23 16:05 08/03/23 16:16 08/03/23 17:26 Temperature 97.2 F L Temperature Source Temporal Pulse Rate 92 80 Respiratory Rate 18 17 Blood Pressure 173/81 H 142/83 H Blood Pressure Mean 111 102 Pulse Ox 97 99 95 Oxygen Delivery Method Room Air Room Air Room Air 08/03/23 17:26 08/03/23 18:15 08/03/23 20:00 Temperature Temperature Source Pulse Rate 81 69 70 Respiratory Rate 17 20 H 19 H Blood Pressure 123/75 H 141/82 H 122/66 H Blood Pressure Mean 91 101 84 Pulse Ox 95 97 98 Oxygen Delivery Method Room Air Room Air Positive well nourished and well developed Constitutional Narrative: BMI 37.2. General Appearance ED: well developed and NAD; Negative for cyanotic, diaphoretic or pallor HEENT Reports moist mucous membranes HEENT Narrative: Head is atraumatic normocephalic. Ears normal. TMs normal. Nares patent. Posterior pharynx out erythema exit. Uvula midline. No deviation with protrusion. Eyes PERRL and EOMs intact bilaterally Eyes Narrative: There is no nystagmus. There is no evidence of papilledema. There is no evidence of photophobia. General Eye ED: Negative for pale conjunctiva or scleral icterus Neck no lymphadenopathy, supple and no JVD Chest Wall inspection of chest normal and palpation of chest normal Resp normal respiratory effort and clear to auscultation bilaterally Cardio regular rate, regular rhythm, S1 normal heart sound, S2 normal heart sound and no murmurs Back/Spine no CVA tenderness Extremity normal to inspection General Extremety ED: Negative for edema or tenderness General Extremity: Negative for edema Neuro oriented x3, CN's II-XII intact bilaterally and no sensory deficits noted Neuro Narrative: There is no dysmetria. Axillary, median, radial and ulnar function intact upper extremity. There is no clonus or Babinski sign. Patella, ankle, bicep, brachialis and tricep reflex are 1-2+ and symmetric. 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 Nurse protocol was initiated. Patient CBC is normal. Patient's electrolyte panel is normal. Patient was treated with IV Toradol, Reglan and Benadryl. She was reassessed at 1822. She feels markedly better. Will discharge to home. Prior imaging was reviewed. She did have advanced imaging of her head with no abnormality noted. Lab Data Labs: Laboratory Results - last 24 hr 08/03/23 08/03/23 08/03/23 16:20 17:40 18:08 WBC 7.7 8.1 RBC 4.39 4.29 Hgb 13.6 13.1 Hct 40.6 39.4 MCV 92.5 91.8 MCH 31.0 30.5 MCHC 33.5 33.2 RDW Std Deviation 41.3 40.7 RDW Coeff of Tyrone 12.1 12.1 Plt Count 201 202 MPV 11.8 11.7 Immature Gran % (Auto) 0.300 0.200 Neut % (Auto) 67.6 67.3 Lymph % (Auto) 21.9 22.9 Marshall % (Auto) 8.5 7.9 Eos % (Auto) 1.6 1.6 Baso % (Auto) 0.1 0.1 Absolute Neuts (auto) 5.2 5.5 Absolute Lymphs (auto) 1.69 1.86 Nucleated RBC % 0 0 PT 12.4 INR 0.9 APTT 27.3 Sodium 140 Potassium 4.0 Chloride 112 H Carbon Dioxide 21.0 Anion Gap 7 BUN 13 Creatinine 0.74 Estim Creat Clear Calc 96.11 Est GFR (MDRD) Af Amer 106 Est GFR (MDRD) Non-Af 88 BUN/Creatinine Ratio 17.5 Glucose 93 Calcium 8.8 POC Glucose 129 H Radiography Chest X-Ray - ED: 1 View, Read by ED Physician, Normal, Heart, Lungs, Mediastinum, Bony Structures and No Acute Disease Diagnostic Testing: Clinical Impression(s) from Imaging Studies Chest X-Ray 08/03/23 17:50 IMPRESSION: Normal x-ray examination of the chest. Electronically Signed: Chucho Adorno MD at 18:42 EDT , X-ray of the chest was obtained per nurse protocol. This was reviewed since it was ordered and is negative. Discharge Plan Triage Chief Complaint: Neuro S/Sx ED Provider: Tyson Wall Dx/Rx/DC Orders Clinical Impression: Acute intractable headache, Facial droop Instructions: ED Pain, Acute, Uncertain Cause Prescriptions: No Action sertraline 50 MG tablet 1 tab PO QHS vitamin B complex 1 EACH tablet 1 ea PO DAILY vitamin D2-vitamin K1 20-120 mcg/4 drops drops PO Primary Care Provider: Crystal Garcia NP Referrals: Tra Culp MD [Non-Staff] - 1-2 Weeks Crystal Garcia NP, [employer] [facility] [Primary Care Provider] - As Needed Print Language: Salvadorean Disposition Disposition: Home, Self Care
[2023-08-03 20:39] VITALS: BP 122/66; PULSE 70; RESP 19; TEMP 36.7; O2SAT 98
== END 2023-08-03 20:40 | disposition home or self-care (01) ==
PROVIDERS: Emergency Provider Emergency Medicine; PCP Nurse Practitioner Family; Visit Provider Emergency Medicine
DX: R51.9 Headache, unspecified (principal); R29.810 Facial weakness; Z90.710 Acquired absence of both cervix and uterus
CPT/HCPCS: 71045; 80048; 82962; 85025; 85610; 85730; 93005; 96374; 96375; 99284; J7030; A4216